=== PATIENT | female | born 1945 | race African-American/Black ===

== ENCOUNTER → 2017-05-13 | Outpatient (CLI) | payer MEDICARE, SELFPAY | PROVIDERS: Visit Provider Physician Assistant | DX: E01.0 Iodine-deficiency related diffuse (endemic) goiter (principal); I10 Essential (primary) hypertension | CPT/HCPCS: 80053; 84436; 84443 ==

== ENCOUNTER 2017-06-17 09:31 | Emergency (ER) | payer MEDICARE, MEDICAID, SELFPAY ==
[2017-06-17 09:34] VITALS: BP 140/71; PULSE 88; RESP 20; TEMP 36.9; O2SAT 99; BMI 54.1
--- NOTE | 2017-06-17 10:35 | HMH.EDUROGF ---
ED Disposition Clinical Impression: Vaginal bleeding, Hemorrhoids, Coagulopathy, Post-menopausal bleeding, Leucocytosis, Osteoarthritis Disposition: Home, Self-Care Condition on Discharge: Good Instructions: DI for Urinary Tract Infection (UTI), DI for Urinary Tract Infection in Children Additional Instructions: Patient remained stable asymptomatic except for the vaginal bleeding. Received IV fluid therapies and obtained pelvic ultrasound. 1- reassurance. 2- to start using maxi pads and return if she uses more than 5 pads a day. 3- to return for a recehck if she developes fever, weakness, dizziness, or light headedness. 4- to see Dr. Viveros as scheduled. 5- stop motrin and NSAIDS and reurmn if needed. Referrals: Ramon Herrera MD [Staff Physician] - - Critical Care Critical Care Time: No Attestation: On 06/17/17, the high probability of a clinically significant, sudden or life threatening deterioration of the following system(s) required my full and direct attention, intervention and personal management. The time I documented below is in addition to time spent performing reported procedures but includes the following listed in this critical care notation. Medical Decision Making Vital Signs: 06/17/17 09:34 06/17/17 10:45 Temperature 98.4 F Temperature Source Oral Pulse Rate [Right Radial] 88 98 H Respiratory Rate 20 18 Blood Pressure [Right Arm] 140/71 147/91 Blood Pressure Mean [Right Arm] 94 109 Blood Pressure Source [Right Arm] Automatic Cuff Blood Pressure Position [Right Arm] Standing 02 Sat by Pulse Oximetry 99 95 Oxygen Delivery Method Room Air Room Air - Lab Data Lab Results 06/17/17 10:20: WBC 15.3 H, RBC 4.36, Hgb 11.5 L, Hct 38.0, MCV 87.3, MCH 26.5 L, MCHC 30.4 L, RDW 14.3, Plt Count 281, MPV 8.1, Neut % (Auto) 83.6 H, Lymph % (Auto) 11.5, [place] % (Auto) 4.4, Eos % (Auto) 0.3, Baso % (Auto) 0.3, Neut # (Auto) 12.7 H, Lymph # (Auto) 1.8, [place] # (Auto) 0.7, Eos # (Auto) 0.0, Baso # (Auto) 0.1, Total Counted 100, Neutrophils % (Manual) 83 H, Lymphocytes % (Manual) 13, Monocytes % (Manual) 4, Platelet Estimate Normal, RBC Morphology Normal 06/17/17 10:50: Stool Occult Blood Negative 06/17/17 10:55: Sodium 136, Potassium 3.9, Chloride 100, Carbon Dioxide 28, Anion Gap 11.9, BUN 22 H, Creatinine 1.22 H, Estimated Creat Clear 38, Estimated GFR 44 L, Est GFR ( Amer) 53 L, Glucose 124 H, Calcium 8.8, Total Bilirubin 1.1 H, AST 13 L, ALT 22, Alkaline Phosphatase 104, Total Protein 8.2, Albumin 2.9 L, Globulin 5.3 H, Albumin/Globulin Ratio 0.5 L 06/17/17 10:55: Blood Type O Positive Result diagrams: 06/17/17 10:20 06/17/17 10:55 Orders (Tests/Meds): ED MEDICATIONS Discontinued Medications Generic Name Dose Route Start Last Admin Trade Name Freq PRN Reason Stop Dose Admin Lactated Ringer's 1,000 mls @ 999 mls/hr 06/17/17 11:15 06/17/17 11:10 Lactated Ringer's 1000 Ml Bag IV 06/17/17 12:15 999 mls/hr .Q1H1M MELVINA Administration ORDERS Category Date Time Status US pelvis (no fetus) Stat Exams 06/17/17 10:49 Ordered Activated Partial Thrombo Time Stat Lab 06/17/17 10:49 Ordered Prothrombin Time INR Stat Lab 06/17/17 10:49 Ordered - Louis Inquiry Pt receiving controlled substance: No Louis was queried for this patient: No Medical Decision Making Narrative: I discussed the above findings with the patient was aware that this is possibly uterine cancer. She had mild tachycardia orthostatics and she started on IV fluid. Order coagulation workup and a pelvic ultrasound. She was found to have a thickened endometrium. She did have leukocytosis, mild anemia and renal insufficiency. I discussed with with the patient if she has any fever cough or urinary issues, she denied. But she did have a steroid injection 10 days ago. I reviewed her labs and her hemoglobin is almost the same. I called the OB outside sales consultant Dr. Ramon Dimas who advised for pelvic
--- NOTE | 2017-06-17 10:41 | ED_ITS ---
ED Disposition Clinical Impression: Vaginal bleeding, Hemorrhoids, Coagulopathy, Post-menopausal bleeding, Leucocytosis, Osteoarthritis Disposition: Home, Self-Care Condition on Discharge: Good Instructions: DI for Urinary Tract Infection (UTI), DI for Urinary Tract Infection in Children Additional Instructions: Patient remained stable asymptomatic except for the vaginal bleeding. Received IV fluid therapies and obtained pelvic ultrasound. 1- reassurance. 2- to start using maxi pads and return if she uses more than 5 pads a day. 3- to return for a recehck if she developes fever, weakness, dizziness, or light headedness. 4- to see Dr. Viveros as scheduled. 5- stop motrin and NSAIDS and reurmn if needed. Referrals: Ramon Herrera MD [Staff Physician] - - Critical Care Critical Care Time: No Attestation: On 06/17/17, the high probability of a clinically significant, sudden or life threatening deterioration of the following system(s) required my full and direct attention, intervention and personal management. The time I documented below is in addition to time spent performing reported procedures but includes the following listed in this critical care notation. Medical Decision Making Vital Signs: 06/17/17 09:34 06/17/17 10:45 Temperature 98.4 F Temperature Source Oral Pulse Rate [Right Radial] 88 98 H Respiratory Rate 20 18 Blood Pressure [Right Arm] 140/71 147/91 Blood Pressure Mean [Right Arm] 94 109 Blood Pressure Source [Right Arm] Automatic Cuff Blood Pressure Position [Right Arm] Standing 02 Sat by Pulse Oximetry 99 95 Oxygen Delivery Method Room Air Room Air - Lab Data Lab Results 06/17/17 10:20: WBC 15.3 H, RBC 4.36, Hgb 11.5 L, Hct 38.0, MCV 87.3, MCH 26.5 L , MCHC 30.4 L, RDW 14.3, Plt Count 281, MPV 8.1, Neut % (Auto) 83.6 H, Lymph % ( Auto) 11.5, [place] % (Auto) 4.4, Eos % (Auto) 0.3, Baso % (Auto) 0.3, Neut # (Auto ) 12.7 H, Lymph # (Auto) 1.8, [place] # (Auto) 0.7, Eos # (Auto) 0.0, Baso # (Auto ) 0.1, Total Counted 100, Neutrophils % (Manual) 83 H, Lymphocytes % (Manual) 13 , Monocytes % (Manual) 4, Platelet Estimate Normal, RBC Morphology Normal 06/17/17 10:50: Stool Occult Blood Negative 06/17/17 10:55: Sodium 136, Potassium 3.9, Chloride 100, Carbon Dioxide 28, Anion Gap 11.9, BUN 22 H, Creatinine 1.22 H, Estimated Creat Clear 38, Estimated GFR 44 L, Est GFR ( Amer) 53 L, Glucose 124 H, Calcium 8.8, Total Bilirubin 1.1 H, AST 13 L, ALT 22, Alkaline Phosphatase 104, Total Protein 8.2, Albumin 2.9 L, Globulin 5.3 H, Albumin/Globulin Ratio 0.5 L 06/17/17 10:55: Blood Type O Positive Result diagrams: 06/17/17 10:20 06/17/17 10:55 Orders (Tests/Meds): ED MEDICATIONS Discontinued Medications Generic Name Dose Route Start Last Admin Trade Name Freq PRN Reason Stop Dose Admin Lactated Ringer's 1,000 mls @ 999 mls/hr 06/17/17 11:15 06/17/17 11:10 Lactated Ringer's 1000 Ml Bag IV 06/17/17 12:15 999 mls/hr .Q1H1M MELVINA Administration ORDERS Category Date Time Status US pelvis (no fetus) Stat Exams 06/17/17 10:49 Ordered Activated Partial Thrombo Time Stat Lab 06/17/17 10:49 Ordered Prothrombin Time INR Stat Lab 06/17/17 10:49 Ordered - Louis Inquiry Pt receiving controlled substance: No Louis was queried for this patient: No Medical Decision Making Narrat
[2017-06-17 10:45] VITALS: BP 147/91; BP 162/69; PULSE 79; PULSE 98; RESP 18; O2SAT 95
--- NOTE | 2017-06-17 10:49 | US_ITS ---
US pelvis (no fetus) HISTORY: ITS.REASON: vaginal bleeding ORDERING PHYSICIAN: Pierre Galicia MD PATIENT AGE: 71 years COMPARISON: None FINDINGS: UTERUS: The uterus measures 8.5 x 4.1 x 6.3. Combined endometrial thickness is 16 mm. No obvious uterine mass RIGHT OVARY: 2.7 x 2.6 cm. Unremarkable LEFT OVARY: 2.6 x 2 cm. Unremarkable CUL-DE-SAC FLUID: No cul-de-sac fluid apparent OTHER FINDINGS: None IMPRESSION: Bulky uterus with thickened endometrium
[2017-06-17 11:06] LABS: Basophils # 0.1 K/mm3 (0-0.2); Basophils % 0.3 % (0.1-2.0); Eosinophils % 0.3 % (0.1-12.0); Hemoglobin 11.5 g/dL (12.2-16.2); Lymphocytes # 1.8 K/mm3 (0.7-4.5); Lymphocytes % 11.5 K/mm3 (10-50); Mean Corpuscular HGB Conc 30.4 g/dL (31.8-35.4); Mean Corpuscular Hemoglobin 26.5 pg (27.0-31.2); Mean Corpuscular Volume 87.3 fl (81-99); Mean Platelet Volume 8.1 fl (7.4-10.4); Monocytes # 0.7 K/mm3 (0.1-1.0); Monocytes % 4.4 % (1.7-9.3); Neutrophils # 12.7 K/mm3 (1.8-7.8); Neutrophils % 83.6 % (37.0-80.0); Platelet Count 281 K/mm3 (142-424); Red Blood Count 4.36 M/mm3 (4.20-5.40); Red Cell Distribution Width 14.3 % (11.5-17.5); White Blood Count 15.3 K/mm3 (4.8-10.8)
[2017-06-17 11:08] LABS: MANUAL DIFFERENTIAL MANUAL DIFFERENTIAL (MANUAL DIFF)
[2017-06-17 11:13] LABS: Occult Blood,Stool Negative (Negative)
[2017-06-17 11:14] LABS: Alanine Aminotransferase 22 U/L (12-78); Albumin Level 2.9 gm/dL (3.4-5.0); Albumin/Globulin Ratio 0.5 (1.1-1.8); Alkaline Phosphatase 104 U/L (46-116); Anion Gap 11.9 mEq/L (5-15); Aspartate Amino Transferase 13 U/L (15-37); Bilirubin,Total 1.1 mg/dL (0.2-1.0); Blood Urea Nitrogen 22 mg/dL (7-18); Calcium 8.8 mg/dL (8.5-10.1); Carbon Dioxide 28 mmol/L (21.0-32.0); Chloride 100 mmol/L (98-107); Creatinine Clearance Estimated 38 mL/min (0-300); Creatinine,Serum 1.22 mg/dL (0.55-1.02); Estimated Glomerular Filt Rate 44 ml/min (>60); GFR (African American) 53 ML/MIN (>60); Globulin 5.3 gm/dl (1.3-3.2); Glucose 124 mg/dL (74-106); Potassium 3.9 mmoL/L (3.5-5.1); Sodium 136 mmol/L (136-145); Total Protein,Serum 8.2 gm/dL (6.4-8.2)
[2017-06-17 11:15] VITALS: BP 158/76; PULSE 74; RESP 20; O2SAT 100
[2017-06-17 11:30] VITALS: BP 186/92; PULSE 82; RESP 20; O2SAT 98
[2017-06-17 11:38] LABS: Lymphocytes % 13 % (10-50); Monocytes % 4 % (2-9); Neutrophils % 83 % (42-76); Platelet Estimate Normal; Total Cells Counted 100
[2017-06-17 11:39] LABS: RBC Morphology Normal
[2017-06-17 12:38] LABS: Activated Partial Thrombo Time 28.4 seconds (23.6-34.0); INR 1.05 (0.9-1.1); Prothrombin Time 11.4 seconds (9.4-11.8)
--- NOTE | 2017-06-17 12:46 | PC.NURSE ---
PT RECEIVED FOOD TRAY. ADDITIONALLY REQUESTED HER SON BE PRESENT. CALLED TO [facility]OBBY FOR SON
--- NOTE | 2017-06-17 13:40 | PC.NURSE ---
appointment made for patient, [address] Herrera's office.
[2017-06-17 13:41] VITALS: BP 150/80; PULSE 80; RESP 20; TEMP 36.7; O2SAT 100
== END 2017-06-17 14:06 | disposition home or self-care (01) ==
PROVIDERS: Emergency Provider Emergency Medicine
DX: N95.0 Postmenopausal bleeding (principal); K64.9 Unspecified hemorrhoids; D68.9 Coagulation defect, unspecified; D72.829 Elevated white blood cell count, unspecified; M19.90 Unspecified osteoarthritis, unspecified site
CPT/HCPCS: 76856; 80053; 82272; 85007; 85025; 85610; 85730; 86900; 86901; 96365; 99283; G0328

== ENCOUNTER → 2018-10-28 18:41 | Outpatient (CLI) | payer MEDICARE, MEDICAID, SELFPAY ==
[2018-10-28 18:59] LABS: Basophils % 0.5 % (0.1-2.0); Eosinophils # 0.2 K/mm3 (0.0-0.4); Eosinophils % 2.1 % (0.1-12.0); Hemoglobin 10.5 g/dL (12.2-16.2); Lymphocytes # 1.5 K/mm3 (0.7-4.5); Lymphocytes % 19.3 % (10-50); Mean Corpuscular HGB Conc 30.8 g/dL (31.8-35.4); Mean Corpuscular Hemoglobin 25.5 pg (27.0-31.2); Mean Corpuscular Volume 82.8 fl (81-99); Mean Platelet Volume 7.7 fl (7.4-10.4); Monocytes # 0.4 K/mm3 (0.1-1.0); Monocytes % 5.1 % (1.7-9.3); Neutrophils # 5.7 K/mm3 (1.8-7.8); Neutrophils % 72.9 % (37.0-80.0); Platelet Count 318 K/mm3 (142-424); Red Blood Count 4.11 M/mm3 (4.20-5.40); Red Cell Distribution Width 15.7 % (11.5-17.5); White Blood Count 7.8 K/mm3 (4.8-10.8)
[2018-10-28 19:51] LABS: Alanine Aminotransferase 21 U/L (12-78); Albumin Level 3.3 gm/dL (3.4-5.0); Albumin/Globulin Ratio 0.6 (1.1-1.8); Alkaline Phosphatase 107 U/L (46-116); Anion Gap 16.7 mEq/L (5-15); Aspartate Amino Transferase 19 U/L (15-37); Bilirubin,Total 0.5 mg/dL (0.2-1.0); Blood Urea Nitrogen 14 mg/dL (7-18); Calcium 9.1 mg/dL (8.5-10.1); Carbon Dioxide 23 mmol/L (21.0-32.0); Chloride 103 mmol/L (98-107); Chol/HDL Ratio 3.9 (1-3.5); Cholesterol 176 mg/dL (140-200); Creatinine,Serum 1.03 mg/dL (0.55-1.02); Estimated Glomerular Filt Rate 53 ml/min (>60); GFR (African American) 64 ML/MIN (>60); Globulin 5.1 gm/dl (1.3-3.2); Glucose 96 mg/dL (74-106); HDL Cholesterol 45 mg/dL (29-89); LDL Cholesterol 117 mg/dL (0-130); Potassium 3.7 mmoL/L (3.5-5.1); Sodium 139 mmol/L (136-145); T4 (Thyroxine) 7.6 ug/dl (4.7-13.3); Thyroid Stimulating Hormone 6.16 uIU/ml (0.358-3.740); Total Protein,Serum 8.4 gm/dL (6.4-8.2); Triglycerides 70 mg/dL (30-200); VLDL Cholesterol 14 mg/dL (0-40)
[2018-10-30 20:48] LABS: Vitamin D 25 Hydroxy 12.4 ng/mL (30.0-100.0)
== END ==
PROVIDERS: Visit Provider Nurse Practitioner Family
DX: I10 Essential (primary) hypertension (principal); N93.9 Abnormal uterine and vaginal bleeding, unspecified
CPT/HCPCS: 80053; 80061; 82652; 84436; 84443; 85025

== ENCOUNTER 2019-03-04 02:04 | Inpatient (IN) ==
[2019-03-04 02:34] LABS: Basophils % 0.3 % (0.1-2.0); Eosinophils % 0.4 % (0.1-12.0); Hematocrit 28.8 % (37.0-47.0); Hemoglobin 8.1 g/dL (12.2-16.2); Lymphocytes # 1.1 K/mm3 (0.7-4.5); Lymphocytes % 9.6 % (10-50); Mean Corpuscular HGB Conc 28.2 g/dL (31.8-35.4); Mean Corpuscular Volume 86.1 fl (81-99); Mean Platelet Volume 7.9 fl (7.4-10.4); Monocytes # 0.6 K/mm3 (0.1-1.0); Monocytes % 5.5 % (1.7-9.3); Neutrophils # 9.2 K/mm3 (1.8-7.8); Neutrophils % 84.1 % (37.0-80.0); Platelet Count 436 K/mm3 (142-424); Red Blood Count 3.35 M/mm3 (4.20-5.40); Red Cell Distribution Width 16.3 % (11.5-17.5); White Blood Count 10.9 K/mm3 (4.8-10.8)
[2019-03-04 02:39] LABS: Albumin Level 2.1 gm/dL (3.4-5.0); Albumin/Globulin Ratio 0.3 (1.1-1.8); Anion Gap 13.7 mEq/L (5-15); Bilirubin,Total 0.5 mg/dL (0.2-1.0); Calcium 8.5 mg/dL (8.5-10.1); Globulin 6.6 gm/dl (1.3-3.2); Total Protein,Serum 8.7 gm/dL (6.4-8.2)
[2019-03-04 02:52] LABS: C-Reactive Protein 19.8 mg/dL (0.0-0.9)
--- NOTE | 2019-03-04 03:17 | Emergency Department Note ---
ED Disposition Clinical Impression: Gangrene, Elevated erythrocyte sedimentation rate, Thrombocytosis, Renal insufficiency, HTN (hypertension), benign Anemia Qualifiers: Anemia type: unspecified type Qualified Code(s): D64.9 - Anemia, unspecified Obesity Qualifiers: Obesity type: due to excess calories Obesity classification: adult class 3 (BMI >= 40) Serious obesity comorbidity presence: with serious comorbidity Body mass index: BMI 50.0-59.9 Qualified Code(s): E66.01 - Morbid (severe) obesity due to excess calories; Z68.43 - Body mass index (BMI) 50.0-59.9, adult Hypothyroidism Qualifiers: Hypothyroidism type: acquired Qualified Code(s): E03.9 - Hypothyroidism, unspecified Disposition: Admitted As Inpatient Condition on Discharge: Serious - Critical Care Critical Care Time: No Attestation: On 03/04/19, the high probability of a clinically significant, sudden or life threatening deterioration of the following system(s) required my full and direct attention, intervention and personal management. The time I documented below is in addition to time spent performing reported procedures but includes the following listed in this critical care notation. Medical Decision Making - Medical Records Medical records reviewed: Yes: I reviewed the patient's medical records. - Louis Inquiry Pt receiving controlled substance: No Vital Signs: 03/04/19 02:02 Temperature 97.8 F Temperature Source Oral Pulse Rate [Left Radial] 97 H Respiratory Rate 17 Blood Pressure [Right Arm] 147/91 H Blood Pressure Mean [Right Arm] 109 Blood Pressure Source [Right Arm] Automatic Cuff Blood Pressure Position [Right Arm] Supine 02 Sat by Pulse Oximetry 99 Oxygen Delivery Method Room Air - Lab Data Lab results reviewed: Yes: I reviewed the patient's lab results. Lab Results 03/04/19 02:10: ESR > 140 H 03/04/19 02:10: Lactate 2.1 H 03/04/19 02:10: WBC 10.9 H, RBC 3.35 L, Hgb 8.1 L, Hct 28.8 L, MCV 86.1, MCH 24. 3 L, MCHC 28.2 L, RDW 16.3, Plt Count 436 H, MPV 7.9, Neut % (Auto) 84.1 H, Lymph % (Auto) 9.6 L, [place] % (Auto) 5.5, Eos % (Auto) 0.4, Baso % (Auto) 0.3, Neut # (Auto) 9.2 H, Lymph # (Auto) 1.1, [place] # (Auto) 0.6, Eos # (Auto) 0.0, Baso # (Auto) 0.0 03/04/19 02:10: Sodium 134 L, Potassium 3.7, Chloride 99, Carbon Dioxide 25, Anion Gap 13.7, BUN 25 H, Creatinine 1.64 H, Estimated Creat Clear 28, Estimated GFR 31 L, Est GFR ( Amer) 37 L, Glucose 123 H, Calcium 8.5, Total Bilirubin 0.5, AST 38 H, ALT 17, Alkaline Phosphatase 101, C-Reactive Protein 19.8 H, Total Protein 8.7 H, Albumin 2.1 L, Globulin 6.6 H, Albumin/Globulin Ratio 0.3 L Result diagrams: 03/04/19 02:10 03/04/19 02:10 Orders (Tests/Meds): ED MEDICATIONS Generic Name Dose Route Start Last Admin Trade Name Freq PRN Reason Stop Dose Admin Vancomycin HCl 2,500 mg/ 500 mls @ 167 mls/hr 03/04/19 03:30 Sodium Chloride IV 03/18/19 03:29 Q24H [facility] ORDERS Category Date Time Status Blood Culture Stat Micro 03/04/19 02:10 Received Fall HPI - General Chief Complaint: Fall Stated Complaint: fall Time Seen by Provider: 03/04/19 02:20 Mode of Arrival: EMS Source of Information: Patient, Relative, EMS, Medical Record Limitations: Physical Limitations Description of Symptoms (Recalled from ER Triage Doc. by RN): pt stated she was at home when her knees gave out and she fell to her knees. pt stated she was unable to get up on her own. pt denies hitting her head/LOC. per ems pt was found still on her knees with her head resting on a chair. bilateral edema and sores present on bilateral lower extremities. pt stated they have been in the condition since februrary from using a cream her son bought her that "made her skin fall off" - History of Present Illness HPI Narrative: progressive swelling lower ext over the last few months and has dec rom and use - pt has drainage and odor to bilat lower ext - no fever - no known diabetes MD complaint: fall Onset (ago): day(s) Fall from: chair Fall witnessed: no Place fall occurred: home Loss of consciousness: none Prolonged down time: no Symptoms prior to fall: none Severity: moderate Associated symptoms (after fall): denies - Related Data Previous Rx's Medication Instructions Recorded mupirocin 2 % topical cream 1 applic TOPICAL BID #15 g 12/11/17 ergocalciferol (vitamin D2) 50,000 50,000 unit PO QWEEK #8 cap 10/31/18 unit capsule carvedilol 25 mg tablet 25 mg PO BID 90 Days #180 tab 11/03/18 triamterene 37.5 See Rx Instructions .ROUTE 11/30/18 mg-hydrochlorothiazide 25 mg tablet .COMPLEX #90 tab diclofenac 1 % topical gel See Rx Instructions .ROUTE 01/11/19 .COMPLEX #100 gram levothyroxine 25 mcg tablet See Rx Instructions .ROUTE 02/18/19 .COMPLEX #90 tablet Allergies Allergy/AdvReac Type Severity Reaction Status Date / Time No Known Allergies Allergy Verified 10/28/18 17:46 [facility] History - Hepatitis A Screen Drug use history?: No High risk sexual behaviors?: No History of sexually transmitted infection?: No Currently employed?: No Childcare worker?: No Do you have indoor plumbing?: Yes Do you have electricity?: Yes Attestation statement:: This patient has been screened for Hepatitis A risk factors. I have reviewed the patient's past medical history: Yes Medical History: Reports:: Heart Murmur, Osteoporosis Other Medical History: Reports: Anemia, Osteoporosis, Unexplained Bleeding Other Surgeries: Yes: 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 Amputation: No Fractures: No - Social History Smoking Status: Never smoker Alcohol Intake: never Substance Use Type: denies use Occupational Status: retired Family Hx:: No significant family history PRODUCTION GRIP history: Abnormal Uterine Bleeding, 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 ROS Obtained: Yes All systems reviewed & no additional complaints - Constitutional Constitutional: Denies fever(s) - Eyes Eyes: Denies change in vision - ENT Ears, Nose, Mouth, and Throat: Denies sore throat - Cardiovascular Cardiovascular: Denies chest pain - Respiratory Respiratory: Yes cough - Gastrointestinal Gastrointestingal: Denies: abdominal pain - Genitourinary Female Genitourinary: Denies hematuria - Musculoskeletal Musculoskeletal: Reports as per HPI, Reports joint pain, Reports joint swelling, Reports limited range of motion - Integumentary/Breasts Skin/Breast: Reports as per HPI, Reports rash - Neurologic Neurologic: Denies seizure-like activity Physical Exam - General General appearance: alert, obese - Head Head exam: normocephalic - Eye Eye exam: Present: PERRL, EOMI. Absent: scleral icterus - ENT ENT exam: Present: mucous membranes dry - Neck Neck exam: Present: trachea midline - Respiratory Respiratory exam: Present: other (dec bs bilat ). Absent: respiratory distress - Cardiovascular Cardiovascular exam: Present: regular rate, systolic murmur, +S4 - Abdominal Exam Abdominal exam: Present: soft - Extremities Exam Extremities exam: Present: other (marked skin changes prob gangrene with odor ) - Neurological Exam Neurological exam: Present: alert, oriented X3, CN II-XII intact - Psychiatric Psychiatric exam: Present: normal affect - Skin Skin exam: Present: other (gangrene to lower ext bilat )
--- NOTE | 2019-03-04 07:39 | Pharmacy Consult Notes ---
[facility] Pharmacy VTE Monitoring - Patient Demographics Admission date: 03/04/19 Report Date: 03/04/19 Time: 07:39 Allergies/Adverse Reactions: Patient Allergies No Known Allergies Allergy (Verified 10/28/18 17:46) Height: 1.65 m Weight: 128.849 kg Patient Problems: Current Active Problems Gangrene (Acute) Anemia (Acute) Elevated erythrocyte sedimentation rate (Acute) Obesity (Acute) Thrombocytosis (Acute) Renal insufficiency (Acute) Hypothyroidism (Acute) HTN (hypertension), benign (Chronic) - VTE Risk Labs: VTE Related Lab Results Hgb 8.1 g/dL (12.2-16.2) L 03/04/19 02:10 Hct 28.8 % (37.0-47.0) L 03/04/19 02:10 Plt Count 436 K/mm3 (142-424) H 03/04/19 02:10 BUN 25 mg/dL (7-18) H 03/04/19 02:10 Creatinine 1.64 mg/dL (0.55-1.02) H 03/04/19 02:10 Estimated Creat Clear 28 mL/min (50-200) 03/04/19 02:10 Was VTE Risk Assessment Performed: Yes VTE Score: 3 VTE Risk Level: Low Risk Clinical Trial Participant: No - Prophylaxis Types of VTE Prophylaxis: TEDS Knee High
--- NOTE | 2019-03-04 08:31 | Pharmacy Consult Notes ---
- Pharmacy Consult Date: 03/04/19 Time: 08:30 Referring provider: DR. CASTAÑEDA Reason for Consult:: VANCOMYCIN DOSING Allergies and ADEs:: Allergies Allergy/AdvReac Type Severity Reaction Status Date / Time No Known Allergies Allergy Verified 10/28/18 17:46 Home Medications:: Home Medications Medication Instructions Recorded Confirmed Type carvedilol 25 mg tablet 25 mg PO BID 90 Days #180 tab 11/03/18 03/04/19 Rx Levothyroxine Sodium 25 mcg PO DAILY 03/04/19 03/04/19 History [Levothyroxine 25mcg (0.025mg) Tab] Triamterene/Hydrochlorothiazid 1 tab PO DAILY 03/04/19 03/04/19 History [Maxzide-25 tablet] Height: 1.65 m Weight: 128.849 kg Laboratory Results:: Laboratory Results - last 24 hr 03/04/19 02:10: ESR > 140 H 03/04/19 02:10: Lactate 2.1 H 03/04/19 02:10: WBC 10.9 H, RBC 3.35 L, Hgb 8.1 L, Hct 28.8 L, MCV 86.1, MCH 24.3 L, MCHC 28.2 L, RDW 16.3, Plt Count 436 H, MPV 7.9, Neut % (Auto) 84.1 H, Lymph % (Auto) 9.6 L, [place] % (Auto) 5.5, Eos % (Auto) 0.4, Baso % (Auto) 0.3, Neut # (Auto) 9.2 H, Lymph # (Auto) 1.1, [place] # (Auto) 0.6, Eos # (Auto) 0.0, Baso # (Auto) 0.0 03/04/19 02:10: Sodium 134 L, Potassium 3.7, Chloride 99, Carbon Dioxide 25, Anion Gap 13.7, BUN 25 H, Creatinine 1.64 H, Estimated Creat Clear 28, Estimated GFR 31 L, Est GFR ( Amer) 37 L, Glucose 123 H, Calcium 8.5, Total Bilirubin 0.5, AST 38 H, ALT 17, Alkaline Phosphatase 101, C-Reactive Protein 19.8 H, Total Protein 8.7 H, Albumin 2.1 L, Globulin 6.6 H, Albumin/Globulin Ratio 0.3 L 03/04/19 02:10: TSH 3.20 D 03/04/19 07:35: Lactate 0.8 Medical History: Reports:: Heart Murmur, Hypertension, Osteoporosis Denies:: Cancer, Diabetes Mellitus Type 1, Diabetes Mellitus Type 2, MRSA Assessment and Plan - Assessment and plan all Dx Assessment and Plan for all problems:: BASED ON PATIENT FACTORS, RECOMMEND VANCOMYCIN 2500 MG IV Q36H. PHARMACY WILL FOLLOW DAILY AND ADJUST APPROPRIATE.
--- NOTE | 2019-03-04 08:37 | Consult Report ---
*Admission Date: 03/04/19 <Radha Alba - 03/04/19 08:42> *Reason for consult:: b/l lower extremity cellulitis <Radha Alba 03/04/19 08:42> *History of present illness: 73 yr. old female admitted with b/l lower extremities cellulitis, edema. Patient states she does not have Diabetes or any PVD, but does state that the lower leg edema and blisters has been an issue for her now going on a year or more. She has not been treated by for this problem by any other lymphedema clinic or provider. She did say she consulted an online provider with this and they started her on keflex for 10 days and she has finished this medication and states no relief. Patient states she used Salicyclic acid on her legs about a month ago to get rid of the rough skin and blisters, which has only burned her skin. <Radha Alba 03/04/19 08:42> Review of Systems - Constitutional Reports daytime sleepiness <Radha Alba 03/04/19 08:42> - Eyes Denies change in vision <Radha Alba 03/04/19 08:42> - ENT Denies abnormal hearing, Denies dizziness <Radha Alba 03/04/19 08:42> - *Cardiovascular Reports leg swelling, Reports leg sores, Reports foot swelling, Denies shortness of breath, Denies shortness of breath when lying down <Radha Alba 03/04/19 08:42> - *Respiratory Denies cough, Denies shortness of breath <Radha Alba 03/04/19 08:42> - *Gastrointestinal Denies abdominal pain <Radha Alba 03/04/19 08:42> - *Musculoskeletal Reports abnormal walking, Reports numbness <AnjaliRadha Robert 03/04/19 08:42> Comments: Patient has difficulty walking due to the pain on her heels, they are red and on the verge of breakdown. Patient states that even though her legs look bad, they do not hurt. <SurjitcaseyRadha Robert Edmond 03/04/19 08:42> - *Neurologic Reports abnormal walking, Reports tingling/numbness/burning sensations, Reports sensory deficit, Reports tingling, Denies confusion, Denies dizziness, Denies seizure-like activity <Radha Alba 03/04/19 08:42> - Psychiatric Reports abnormal sleep pattern <Radha Alba 03/04/19 08:42> Comments: Patient states that she does not sleep well. <Radha Alba 03/04/19 08:42> - Hematologic/Lymphatic Denies easy bruising <Radha Alba 03/04/19 08:42> - Allergic/Immunologic Denies wheezing <Radha Alba 03/04/19 09:10> [facility] History I have reviewed the patient's past medical history: Yes <Soumya Blue - 03/04/19 19:06> Medical History: Reports:: Heart Murmur, Hypertension, Osteoporosis Denies:: Cancer, Diabetes Mellitus Type 1, Diabetes Mellitus Type 2, MRSA <Radha Alba 03/04/19 08:42> *Have you ever received a pneumonia vaccine?: No <Radha Alba 03/04/19 08:42> *Have you received a flu vaccine this season?: No <Radha Alba 03/04/19 08:42> Other Medical History: Reports: Anemia, Osteoporosis, Unexplained Bleeding <Radha Alba 03/04/19 08:42> Other Surgeries: Yes: 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 <Radha Alba 03/04/19 08:42> Amputation: No <Radha Alba 03/04/19 08:42> Fractures: No <Radha Alba 03/04/19 08:42> - *Social History Educational Level: Completed College <Radha Alba 03/04/19 08:42> Smoking Status: Former smoker <Radha Alba 03/04/19 08:42> Tobacco Type: cigarettes <Radha Alba 03/04/19 08:42> #Yrs smoked (if former smoker): 10 <Radha Alba - 03/04/19 08:42> Smoking End Date: 25 YEARS AGO <Radha Alba 03/04/19 08:42> Alcohol Intake: never <Radha Alba 03/04/19 08:42> Substance Use Type: denies use <Radha Alba 03/04/19 08:42> *Occupational Status:: retired <Radha Alba 03/04/19 08:42> Household Members: children <Radha Alba 03/04/19 08:42> *Travel in the last 8 weeks: None <Radha Alba 03/04/19 08:42> Family Hx:: No significant family history <Radha Alba 03/04/19 08:42> [employer]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, 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 <Radha Alba 03/04/19 08:42> Meds Home Medications Medication Instructions Recorded Confirmed Type carvedilol 25 mg tablet 25 mg PO BID 90 Days #180 tab 11/03/18 03/04/19 Rx Levothyroxine Sodium 25 mcg PO DAILY 03/04/19 03/04/19 History [Levothyroxine 25mcg (0.025mg) Tab] Triamterene/Hydrochlorothiazid 1 tab PO DAILY 03/04/19 03/04/19 History [Maxzide-25 tablet] <Radha Alba 03/04/19 08:42> Allergies Allergy/AdvReac Type Severity Reaction Status Date / Time No Known Allergies Allergy Verified 10/28/18 17:46 <Radha Alba 03/04/19 08:42> Exam Vital signs and Labs for Last 24 Hours: Temp Pulse Resp BP Pulse Ox 98.4 F 83 17 135/55 L 94 L 03/04/19 16:00 03/04/19 16:00 03/04/19 16:00 03/04/19 16:00 03/04/19 16:00 Laboratory Results - last 24 hr 03/04/19 02:10: ESR > 140 H 03/04/19 02:10: Lactate 2.1 H 03/04/19 02:10: WBC 10.9 H, RBC 3.35 L, Hgb 8.1 L, Hct 28.8 L, MCV 86.1, MCH 24.3 L, MCHC 28.2 L, RDW 16.3, Plt Count 436 H, MPV 7.9, Neut % (Auto) 84.1 H, Lymph % (Auto) 9.6 L, Noble % (Auto) 5.5, Eos % (Auto) 0.4, Baso % (Auto) 0.3, Neut # (Auto) 9.2 H, Lymph # (Auto) 1.1, Noble # (Auto) 0.6, Eos # (Auto) 0.0, Baso # (Auto) 0.0 03/04/19 02:10: Sodium 134 L, Potassium 3.7, Chloride 99, Carbon Dioxide 25, Anion Gap 13.7, BUN 25 H, Creatinine 1.64 H, Estimated Creat Clear 28, Estimated GFR 31 L, Est GFR ( Amer) 37 L, Glucose 123 H, Calcium 8.5, Total Bilirubin 0.5, AST 38 H, ALT 17, Alkaline Phosphatase 101, C-Reactive Protein 19.8 H, Total Protein 8.7 H, Albumin 2.1 L, Globulin 6.6 H, Albumin/Globulin Ratio 0.3 L 03/04/19 02:10: TSH 3.20 D 03/04/19 07:35: Lactate 0.8 <Soumya Blue - 03/04/19 18:53> Temp Pulse Resp BP Pulse Ox 98.2 F 89 16 118/52 L 100 03/04/19 08:00 03/04/19 08:00 03/04/19 08:00 03/04/19 08:00 03/04/19 08:00 Laboratory Results - last 24 hr 03/04/19 02:10: ESR > 140 H 03/04/19 02:10: Lactate 2.1 H 03/04/19 02:10: WBC 10.9 H, RBC 3.35 L, Hgb 8.1 L, Hct 28.8 L, MCV 86.1, MCH 24.3 L, MCHC 28.2 L, RDW 16.3, Plt Count 436 H, MPV 7.9, Neut % (Auto) 84.1 H, Lymph % (Auto) 9.6 L, Noble % (Auto) 5.5, Eos % (Auto) 0.4, Baso % (Auto) 0.3, Neut # (Auto) 9.2 H, Lymph # (Auto) 1.1, Noble # (Auto) 0.6, Eos # (Auto) 0.0, Baso # (Auto) 0.0 03/04/19 02:10: Sodium 134 L, Potassium 3.7, Chloride 99, Carbon Dioxide 25, Anion Gap 13.7, BUN 25 H, Creatinine 1.64 H, Estimated Creat Clear 28, Estimated GFR 31 L, Est GFR ( Amer) 37 L, Glucose 123 H, Calcium 8.5, Total Bilirubin 0.5, AST 38 H, ALT 17, Alkaline Phosphatase 101, C-Reactive Protein 19.8 H, Total Protein 8.7 H, Albumin 2.1 L, Globulin 6.6 H, Albumin/Globulin Ratio 0.3 L 03/04/19 02:10: TSH 3.20 D 03/04/19 07:35: Lactate 0.8 <Radha Alba - 03/04/19 08:42> I & O for Last 24 hours: Intake & Output 03/02/19 03/03/19 03/04/19 03/05/19 11:59 11:59 11:59 11:59 Intake Total 546 / 546 240 / 240 Output Total 350 / 350 Balance 546 / 546 -110 / -110 Weight 284 lb 1 oz <Soumya Blue - 03/04/19 18:53> Intake & Output 03/01/19 03/02/19 03/03/19 03/04/19 23:59 23:59 23:59 23:59 Intake Total 546 / 546 Balance 546 / 546 Weight 284 lb 1 oz <Radha Alba - 03/04/19 08:42> Microbiology Reports for the Last 24 Hours: Microbiology 03/04/19 03:55 Ankle,Right Gram Stain - Final <Soumya Blue - 03/04/19 18:53> Microbiology 03/04/19 03:55 Ankle,Right Gram Stain - Final <Radha Alba - 03/04/19 08:42> - Constitutional no acute distress, morbidly obese, cooperative <Radha Alba - 03/04/19 18:34> - *Routine HEENT Exam Head: Present: normocephalic <Radha Alba - 03/04/19 18:34> Eye: Present: normal accommodation <Radha Alba - 03/04/19 18:34> ENT: Present: mucous membranes moist <Radha Alba - 03/04/19 18:34> - *Routine Neck Exam Present: full ROM. Absent: JVD <Radha Alba - 03/04/19 18:34> - Routine Chest/Breast/Axilla Exam Chest wall: Absent: tenderness <SurjituzRadha rojo - 03/04/19 18:34> - *Routine Respiratory Exam Absent: accessory muscle use, respiratory distress <Radha Alba - 03/04/19 18:34> - *Routine Cardiovascular Exam Present: RRR <Radha Alba - 03/04/19 18:34> - *Routine Abdominal Exam Absent: distended, guarding <Radha Alba - 03/04/19 18:34> - *Routine Rectal Exam Patient deferred: visual exam <Radha Abla - 03/04/19 18:34> - *Routine Exam Patient deferred: external exam <Radha Alba - 03/04/19 18:34> - *Routine Extremities Exam Present: edema, normal capillary refill. Absent: pulses intact, calf tenderness <Radha Alba - 03/04/19 18:34> Comments: Patient has 3+ pedal edema noted, unable to palpate her pulses. <Radha Alba - 03/04/19 18:34> - *Routine Skin Exam Present: erythema, warm, lesions, wounds, cracked <Radha Alba - 03/04/19 18:34> - *Routine Neurological Exam Present: oriented X3, abnormal gait <Radha Alba - 03/04/19 18:34> - Detailed Lower Extremity Exam Lower leg: Bilateral swelling, Bilateral tenderness, Bilateral wound, Bilateral erythema, Bilateral warmth <Radha Alba - 03/04/19 18:34> Ankle: Bilateral erythema, Bilateral swelling <Radha Alba Robert - 03/04/19 18:34> Foot/Toes: Bilateral erythema, Bilateral nail abnormalities, Bilateral swelling, Bilateral wound <Radha Alba - 03/04/19 18:34> Leg image: 1 - The entire left leg is edematous and has weepy wounds, cracked sores, bullous, and has a foul smell. Patient to consult with wound care today. 2 - The entire right is edematous and has weepy wounds, cracked sores, bullous, and has a foul smell. Patient to consult with wound care today. <Radha Alba Robert - 03/04/19 18:34> Bottom foot image: 1 - Edema and erythema noted to the right and left heels. Early signs of pressure ulcer. No definitive skin breakdown, blistering or ulcer noted. No pur ulence. Mild pain to palpation. 2 - See above <Soumya Blue - 03/04/19 19:06> Results - Labs Result Diagrams: 03/04/19 02:10 03/04/19 02:10 <Radha Alba Robert - 03/04/19 08:42> Labs: Abnormal lab results 03/04/19 03/04/19 03/04/19 Range/Units 02:10 02:10 02:10 WBC 10.9 H (4.8-10.8) K/mm3 RBC 3.35 L (4.20-5.40) M/mm3 Hgb 8.1 L (12.2-16.2) g/dL Hct 28.8 L (37.0-47.0) % MCH 24.3 L (27.0-31.2) pg MCHC 28.2 L (31.8-35.4) g/dL Plt Count 436 H (142-424) K/mm3 Neut % (Auto) 84.1 H (37.0-80.0) % Lymph % (Auto) 9.6 L (10-50) % Neut # (Auto) 9.2 H (1.8-7.8) K/mm3 ESR > 140 H (0-30) mm/hr Sodium (136-145) mmol/L BUN (7-18) mg/dL Creatinine (0.55-1.02) mg/dL Estimated GFR (>60) ml/min Est GFR ( Amer) (>60) ML/MIN Glucose (74-106) mg/dL Lactate 2.1 H (0.4-2.0) mmol/L AST (15-37) U/L C-Reactive Protein (0.0-0.9) mg/dL Total Protein (6.4-8.2) gm/dL Albumin (3.4-5.0) gm/dL Globulin (1.3-3.2) gm/dl Albumin/Globulin Ratio (1.1-1.8) 03/04/19 Range/Units 02:10 WBC (4.8-10.8) K/mm3 RBC (4.20-5.40) M/mm3 Hgb (12.2-16.2) g/dL Hct (37.0-47.0) % MCH (27.0-31.2) pg MCHC (31.8-35.4) g/dL Plt Count (142-424) K/mm3 Neut % (Auto) (37.0-80.0) % Lymph % (Auto) (10-50) % Neut # (Auto) (1.8-7.8) K/mm3 ESR (0-30) mm/hr Sodium 134 L (136-145) mmol/L BUN 25 H (7-18) mg/dL Creatinine 1.64 H (0.55-1.02) mg/dL Estimated GFR 31 L (>60) ml/min Est GFR ( Amer) 37 L (>60) ML/MIN Glucose 123 H (74-106) mg/dL Lactate (0.4-2.0) mmol/L AST 38 H (15-37) U/L C-Reactive Protein 19.8 H (0.0-0.9) mg/dL Total Protein 8.7 H (6.4-8.2) gm/dL Albumin 2.1 L (3.4-5.0) gm/dL Globulin 6.6 H (1.3-3.2) gm/dl Albumin/Globulin Ratio 0.3 L (1.1-1.8) H & H 03/04/19 Range/Units 02:10 Hgb 8.1 L (12.2-16.2) g/dL Hct 28.8 L (37.0-47.0) % All other labs normal. <Soumya Blue - 03/04/19 18:53> Abnormal lab results 03/04/19 03/04/19 03/04/19 Range/Units 02:10 02:10 02:10 WBC 10.9 H (4.8-10.8) K/mm3 RBC 3.35 L (4.20-5.40) M/mm3 Hgb 8.1 L (12.2-16.2) g/dL Hct 28.8 L (37.0-47.0) % MCH 24.3 L (27.0-31.2) pg MCHC 28.2 L (31.8-35.4) g/dL Plt Count 436 H (142-424) K/mm3 Neut % (Auto) 84.1 H (37.0-80.0) % Lymph % (Auto) 9.6 L (10-50) % Neut # (Auto) 9.2 H (1.8-7.8) K/mm3 ESR > 140 H (0-30) mm/hr Sodium (136-145) mmol/L BUN (7-18) mg/dL Creatinine (0.55-1.02) mg/dL Estimated GFR (>60) ml/min Est GFR ( Amer) (>60) ML/MIN Glucose (74-106) mg/dL Lactate 2.1 H (0.4-2.0) mmol/L AST (15-37) U/L C-Reactive Protein (0.0-0.9) mg/dL Total Protein (6.4-8.2) gm/dL Albumin (3.4-5.0) gm/dL Globulin (1.3-3.2) gm/dl Albumin/Globulin Ratio (1.1-1.8) 03/04/19 Range/Units 02:10 WBC (4.8-10.8) K/mm3 RBC (4.20-5.40) M/mm3 Hgb (12.2-16.2) g/dL Hct (37.0-47.0) % MCH (27.0-31.2) pg MCHC (31.8-35.4) g/dL Plt Count (142-424) K/mm3 Neut % (Auto) (37.0-80.0) % Lymph % (Auto) (10-50) % Neut # (Auto) (1.8-7.8) K/mm3 ESR (0-30) mm/hr Sodium 134 L (136-145) mmol/L BUN 25 H (7-18) mg/dL Creatinine 1.64 H (0.55-1.02) mg/dL Estimated GFR 31 L (>60) ml/min Est GFR ( Amer) 37 L (>60) ML/MIN Glucose 123 H (74-106) mg/dL Lactate (0.4-2.0) mmol/L AST 38 H (15-37) U/L C-Reactive Protein 19.8 H (0.0-0.9) mg/dL Total Protein 8.7 H (6.4-8.2) gm/dL Albumin 2.1 L (3.4-5.0) gm/dL Globulin 6.6 H (1.3-3.2) gm/dl Albumin/Globulin Ratio 0.3 L (1.1-1.8) H & H 03/04/19 Range/Units 02:10 Hgb 8.1 L (12.2-16.2) g/dL Hct 28.8 L (37.0-47.0) % All other labs normal. <Radha Alba - 03/04/19 08:42> - Diagnostic results Ankle/Foot x-ray: report reviewed, image reviewed <Soumya Blue - 03/04/19 19:06> Assessment and Plan (1) Lymphedema Start date: 03/04/19 Start time: 08:00 Current visit: Yes Status: Acute Category: Medical Code(s): I89.0 - Lymphedema, not elsewhere classified (2) Cellulitis, leg Start date: 03/04/19 Start time: 08:00 Current visit: Yes Status: Acute Category: Medical Code(s): L03.119 - Cellulitis of unspecified part of limb (3) Heel ulcer Start date: 03/04/19 Start time: 08:00 Current visit: Yes Status: Acute Category: Medical Code(s): L97.409 - Non-pressure chronic ulcer of unspecified heel and midfoot with unspecified severity (4) Bilateral pressure ulcer of feet Current visit: Yes Status: Acute Category: Medical Code(s): L89.899 - Pressure ulcer of other site, unspecified stage (5) Morbid obesity with BMI of 45.0-49.9, adult Start date: 03/04/19 Start time: 08:00 Current visit: Yes Status: Chronic Category: Medical Code(s): E66.01 - Morbid (severe) obesity due to excess calories; Z68.42 - Body mass index (BMI) 45.0-49.9, adult (6) Keratosis Start date: 03/04/19 Start time: 08:00 Current visit: Yes Status: Chronic Category: Medical Code(s): L57.0 - Actinic keratosis (7) Osteoarthritis of feet, bilateral Start date: 03/04/19 Start time: 08:00 Current visit: Yes Status: Chronic Category: Medical Code(s): M19.071 - Primary osteoarthritis, right ankle and foot; M19.072 - Primary osteoarthritis, left ankle and foot <Soumya Blue - 03/04/19 18:53> (1) Lymphedema Start date: 03/04/19 Start time: 08:00 Current visit: Yes Status: Acute Category: Medical Code(s): I89.0 - Lymphedema, not elsewhere classified (2) Cellulitis, leg Start date: 03/04/19 Start time: 08:00 Current visit: Yes Status: Acute Category: Medical Code(s): L03.119 - Cellulitis of unspecified part of limb (3) Heel ulcer Start date: 03/04/19 Start time: 08:00 Current visit: Yes Status: Acute Category: Medical Code(s): L97.409 - Non-pressure chronic ulcer of unspecified heel and midfoot with unspecified severity <Gauze,Radha L - 03/04/19 19:07> - Assessment and plan all Dx Assessment and Plan for all problems:: Bilateral lower extremity lymphedema, heel pressure ulcers, cellulitis: We discussed in detail with the patient lymphedema. We explained that when the lymphatic drainage occurs there can be sores on the legs. Likely there was superficial can skin contaminant to the open sores which led to cellulitis. Also the use of the salicylic acid on the skin may have burned it causing an open sore which then got infected. I explained the treatment is multi- factorial. The underlying lymphedema needs to be addressed via wound care clinic, lymphedema clinic including compression therapy and the use of Unna boots. The infection needs to be controlled via antibiotics. The heel pain needs to be controlled by offloading the heels. The patient does not have a definitive pressure ulcer as of yet but the areas edematous and erythematous. She must offload in order to prevent decubitus ulcers from forming. 30 minutes was spent educating and counseling the patient. Plan: 1. Foot x-rays 3 views taken 03/04/2019 reviewed and evaluated by myself. Report noted. Osteoarthritic changes noted throughout the foot. No definitive ulcer or signs of osteomyelitis noted 2. Agree with Dr. Greenfield's consult for wound care 3. Add consult for specific lymphedema treatment 4. Application of unna boots today via wound care 5. Recommend minimal weightbearing to avoid pressure on the heels; patient will need DME (wheelchair, walker, bedside commode, shower chair) 6. Patient will need postop shoe x2 7. Patient will need outpatient lymphedema compression therapy, antibiotics for the cellulitis and continued offloading for the heels 8. Defer to Dr. Greenfield for outpatient antiobiotics, patient may need PICC line based on wound culture 9. Plan to see patient in am 10. Follow up with wcc/lymph upon discharge Thank you for allowing us to participate in the care of this patient. Please contact us with questions or concerns. <Soumya Blue - 03/04/19 19:06>
--- NOTE | 2019-03-04 09:53 | History & Physical Report ---
*Admission Date: 03/04/19 *Chief complaint: leg sores *History of present illness: 73 yr old female pt stated she was at home when her knees gave out and she fell to her knees. pt stated she was unable to get up on her own. pt denies hitting her head/LOC. per ems pt was found still on her knees with her head resting on a chair. bilateral edema and sores present on bilateral lower extremities. pt stated they have been in the condition with dry/scarred so she bought a cream that was for wart removal that "made her skin fall off" for about a month and a half. Patient states she is been having increased amount of issues with her knees hurting and was told she is not a candidate for knee replacement due to her obesity. Patient states her legs just progressively got worse. [facility] History I have reviewed the patient's past medical history: Yes Medical History: Reports:: Heart Murmur, Hypertension, Osteoporosis Denies:: Cancer, Diabetes Mellitus Type 1, Diabetes Mellitus Type 2, MRSA *Have you ever received a pneumonia vaccine?: No *Have you received a flu vaccine this season?: No Other Medical History: Reports: Anemia, Osteoporosis, Unexplained Bleeding Other Surgeries: Yes: 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 Amputation: No Fractures: No - *Social History Educational Level: Completed College Smoking Status: Former smoker Tobacco Type: cigarettes #Yrs smoked (if former smoker): 10 Smoking End Date: 25 YEARS AGO Alcohol Intake: never Substance Use Type: denies use *Occupational Status:: retired Household Members: children *Travel in the last 8 weeks: None Family Hx:: No significant family history 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, 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 Review of Systems - Constitutional Reports weakness, Denies excessive sweating - Eyes Denies sensitivity to light - ENT Denies sinus pain - *Cardiovascular Reports generalized swelling, Denies leg pain with activity - *Respiratory Denies chest congestion, Denies shortness of breath - *Gastrointestinal Denies nausea, Denies vomiting - *Genitourinary Denies side pain - *Musculoskeletal Reports muscle weakness - Integumentary/Breasts Reports skin ulcer, Reports sores - *Neurologic Reports abnormal walking, Reports numbness, Reports tingling/numbness/burning sensations, Reports sensory deficit, Reports tingling, Denies abnormal hearing, Denies confusion, Denies dizziness, Denies seizure-like activity, Denies dizziness - Psychiatric Denies anxiety - Endocrine Denies heat intolerance - Hematologic/Lymphatic Denies enlarged lymph nodes - Allergic/Immunologic Denies seasonal runny nose Meds Home Medications Medication Instructions Recorded Confirmed Type carvedilol 25 mg tablet 25 mg PO BID 90 Days #180 tab 11/03/18 03/04/19 Rx Levothyroxine Sodium 25 mcg PO DAILY 03/04/19 03/04/19 History [Levothyroxine 25mcg (0.025mg) Tab] Triamterene/Hydrochlorothiazid 1 tab PO DAILY 03/04/19 03/04/19 History [Maxzide-25 tablet] Allergies Allergy/AdvReac Type Severity Reaction Status Date / Time No Known Allergies Allergy Verified 10/28/18 17:46 Exam Vital signs and Labs for Last 24 Hours: Temp Pulse Resp BP Pulse Ox 98.2 F 89 16 118/52 L 100 03/04/19 08:00 03/04/19 08:00 03/04/19 08:00 03/04/19 08:00 03/04/19 08:00 Laboratory Results - last 24 hr 03/04/19 02:10: ESR > 140 H 03/04/19 02:10: Lactate 2.1 H 03/04/19 02:10: WBC 10.9 H, RBC 3.35 L, Hgb 8.1 L, Hct 28.8 L, MCV 86.1, MCH 24.3 L, MCHC 28.2 L, RDW 16.3, Plt Count 436 H, MPV 7.9, Neut % (Auto) 84.1 H, Lymph % (Auto) 9.6 L, Addison % (Auto) 5.5, Eos % (Auto) 0.4, Baso % (Auto) 0.3, Neut # (Auto) 9.2 H, Lymph # (Auto) 1.1, Addison # (Auto) 0.6, Eos # (Auto) 0.0, Baso # (Auto) 0.0 03/04/19 02:10: Sodium 134 L, Potassium 3.7, Chloride 99, Carbon Dioxide 25, Anion Gap 13.7, BUN 25 H, Creatinine 1.64 H, Estimated Creat Clear 28, Estimated GFR 31 L, Est GFR ( Amer) 37 L, Glucose 123 H, Calcium 8.5, Total Bilirubin 0.5, AST 38 H, ALT 17, Alkaline Phosphatase 101, C-Reactive Protein 19.8 H, Total Protein 8.7 H, Albumin 2.1 L, Globulin 6.6 H, Albumin/Globulin Ratio 0.3 L 03/04/19 02:10: TSH 3.20 D 03/04/19 07:35: Lactate 0.8 I & O for Last 24 hours: Intake & Output 03/01/19 03/02/19 03/03/19 03/04/19 11:59 11:59 11:59 11:59 Intake Total 546 / 546 Balance 546 / 546 Weight 284 lb 1 oz Microbiology Reports for the Last 24 Hours: Microbiology 03/04/19 03:55 Ankle,Right Gram Stain - Final - *Routine HEENT Exam Head: Present: normocephalic Eye: Present: EOMI, PERRL ENT: Present: mucous membranes moist - *Routine Neck Exam Present: supple. Absent: lymphadenopathy - *Routine Respiratory Exam Present: CTA bilaterally - *Routine Cardiovascular Exam Present: RRR - *Routine Abdominal Exam Present: soft, normoactive bowel sounds. Absent: tenderness - *Routine Extremities Exam Absent: cyanosis, clubbing, edema - *Routine Skin Exam Present: warm, wounds. Absent: rash Comments: Left heel with reddened area about the size of a golf ball with black in the center Bilateral legs with open oozing purulent smelling open areas with dry skin sloughing off - *Routine Neurological Exam Present: alert, oriented X3 - Detailed Eye Exam Eyelids: Left normal inspection Assessment and Plan (1) Venous stasis ulcers of both lower extremities Current visit: Yes Status: Acute Category: Medical Code(s): I83.019 - Varicose veins of right lower extremity with ulcer of unspecified site; I83.029 - Varicose veins of left lower extremity with ulcer of unspecified site; L97.919 - Non-pressure chronic ulcer of unspecified part of right lower leg with unspecified severity; L97.929 - Non-pressure chronic ulcer of unspecified part of left lower leg with unspecified severity (2) Osteoarthritis Current visit: No Status: Acute Category: Medical Code(s): M19.90 - Unspecified osteoarthritis, unspecified site (3) Obesity Current visit: Yes Status: Acute Qualifiers: Obesity type: due to excess calories Obesity classification: adult class 3 (BMI >= 40) Serious obesity comorbidity presence: with serious comorbidity Body mass index: BMI 50.0-59.9 Qualified Code(s): E66.01 - Morbid (severe) obesity due to excess calories; Z68.43 - Body mass index (BMI) 50.0-59.9, adult Category: Medical Code(s): E66.9 - Obesity, unspecified - Assessment and plan all Dx Assessment and Plan for all problems:: Rounded with Dr. Greenfield all orders per [place] Consult Dr. Mcdonnell Consult physical therapy Consult Ortho
--- NOTE | 2019-03-04 16:48 | Consult Report ---
*Admission Date: 03/04/19 *Reason for consult:: bilateral knee pain *History of present illness: 73-year-old female admitted through the emergency room overnight after a fall at home when her knees gave out. She lives at home with her children and ambulates at baseline with either a cane or rolling walker. She is only able to ambulate short distances and believes she would not be able to walk an entire city block without stopping to rest. Her home is one-story with 1 or 2 small steps required for entry. She has a history of osteoarthritis of bilateral knees and has been evaluated at by Dr. Fung, who discussed her need for knee replacement but that she is not a good candidate at this time due to her weight; she was seen by him in May 2017. She was given corticosteroid injections at that time, which did help her pain, but they have worn off. Her son has discussed viscosupplementation or PRP injections but they have not been performed to date. She takes diclofenac oral tabs and uses the topical cream at home. She has had no other treatment for her knees. On admission she was found to have lower extremity cellulitis and significant lymphedema. She has not been treated in the past by a lymphedema clinic or used any lymphedema/compression products. She reports increasing pain and swelling in her legs over the past few months but denies significant fevers or chills at home, no nausea/vomiting or diarrhea, no chest pain or shortness of breath. Medical history significant for HTN, osteoporosis, heart murmur, chronic anemia. She is a former smoker and quit around 25 years ago; denies any EtOH intake. BMI is 47.3. Review of Systems - Review of Systems Review of systems:: pertinent systems reviewed and negative unless documented below - *Neurologic Reports abnormal walking, Reports numbness, Reports tingling/numbness/burning sensations, Reports sensory deficit, Reports tingling, Reports weakness, Denies abnormal hearing, Denies confusion, Denies dizziness, Denies seizure-like activity, Denies dizziness [facility] History I have reviewed the patient's past medical history: Yes Medical History: Reports:: Heart Murmur, Hypertension, Osteoporosis Denies:: Cancer, Diabetes Mellitus Type 1, Diabetes Mellitus Type 2, MRSA *Have you ever received a pneumonia vaccine?: No *Have you received a flu vaccine this season?: No Other Medical History: Reports: Anemia, Osteoporosis, Unexplained Bleeding Other Surgeries: Yes: 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 Amputation: No Fractures: No - *Social History Educational Level: Completed College Smoking Status: Former smoker Tobacco Type: cigarettes #Yrs smoked (if former smoker): 10 Smoking End Date: 25 YEARS AGO Alcohol Intake: never Substance Use Type: denies use *Occupational Status:: retired Household Members: children *Travel in the last 8 weeks: None Family Hx:: No significant family history KNIFE GRINDER history: Abnormal Uterine Bleeding, 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 Meds Home Medications Medication Instructions Recorded Confirmed Type carvedilol 25 mg tablet 25 mg PO BID 90 Days #180 tab 11/03/18 03/04/19 Rx Levothyroxine Sodium 25 mcg PO DAILY 03/04/19 03/04/19 History [Levothyroxine 25mcg (0.025mg) Tab] Triamterene/Hydrochlorothiazid 1 tab PO DAILY 03/04/19 03/04/19 History [Maxzide-25 tablet] Allergies Allergy/AdvReac Type Severity Reaction Status Date / Time No Known Allergies Allergy Verified 10/28/18 17:46 Exam Vital signs and Labs for Last 24 Hours: Temp Pulse Resp BP Pulse Ox 98.2 F 89 16 118/52 L 100 03/04/19 08:00 03/04/19 08:00 03/04/19 08:00 03/04/19 08:00 03/04/19 08:00 Laboratory Results - last 24 hr 03/04/19 02:10: ESR > 140 H 03/04/19 02:10: Lactate 2.1 H 03/04/19 02:10: WBC 10.9 H, RBC 3.35 L, Hgb 8.1 L, Hct 28.8 L, MCV 86.1, MCH 24.3 L, MCHC 28.2 L, RDW 16.3, Plt Count 436 H, MPV 7.9, Neut % (Auto) 84.1 H, Lymph % (Auto) 9.6 L, [place] % (Auto) 5.5, Eos % (Auto) 0.4, Baso % (Auto) 0.3, Neut # (Auto) 9.2 H, Lymph # (Auto) 1.1, [place] # (Auto) 0.6, Eos # (Auto) 0.0, Baso # (Auto) 0.0 03/04/19 02:10: Sodium 134 L, Potassium 3.7, Chloride 99, Carbon Dioxide 25, Anion Gap 13.7, BUN 25 H, Creatinine 1.64 H, Estimated Creat Clear 28, Estimated GFR 31 L, Est GFR ( Amer) 37 L, Glucose 123 H, Calcium 8.5, Total Bilirubin 0.5, AST 38 H, ALT 17, Alkaline Phosphatase 101, C-Reactive Protein 1 9.8 H, Total Protein 8.7 H, Albumin 2.1 L, Globulin 6.6 H, Albumin/Globulin Ratio 0.3 L 03/04/19 02:10: TSH 3.20 D 03/04/19 07:35: Lactate 0.8 I & O for Last 24 hours: Intake & Output 03/02/19 03/03/19 03/04/19 03/05/19 11:59 11:59 11:59 11:59 Intake Total 546 / 546 Balance 546 / 546 Weight 284 lb 1 oz Microbiology Reports for the Last 24 Hours: Microbiology 03/04/19 03:55 Ankle,Right Gram Stain - Final - Constitutional no acute distress, morbidly obese - *Routine HEENT Exam Head: Present: normocephalic Eye: Present: EOMI ENT: Present: mucous membranes moist - *Routine Respiratory Exam Present: CTA bilaterally. Absent: wheezes - *Routine Cardiovascular Exam Present: RRR - *Routine Abdominal Exam Present: soft. Absent: tenderness - *Routine Extremities Exam Comments: BLE wrapped with Unna boot/Coban by lymphedema/wound care team; unable to assess underlying cellulitis patient is morbidly obese, body habitus and position in bed limits exam able to passively range B/L knees 0-100 degrees with moderate discomfort and crepitus B/L knees appear stable to varus/valgus stress but again, exam limited by habitus patient unable to perform unassisted straight leg raise +DF/PF/EHL BLE cannot palpate pedal pulses due to compression dressings; exposed toes warm with brisk cap refill SILT distally across toes, sensory testing in other distributions hindered by dressings negative logroll B/L hips - *Routine Neurological Exam Present: alert, oriented X3, moving all extremities, normal tone, hearing grossly intact, normal speech. Absent: sensory deficit, motor deficit, altered mental status Results - Labs Result Diagrams: 03/04/19 02:10 03/04/19 02:10 Labs: Abnormal lab results 03/04/19 03/04/19 03/04/19 Range/Units 02:10 02:10 02:10 WBC 10.9 H (4.8-10.8) K/mm3 RBC 3.35 L (4.20-5.40) M/mm3 Hgb 8.1 L (12.2-16.2) g/dL Hct 28.8 L (37.0-47.0) % MCH 24.3 L (27.0-31.2) pg MCHC 28.2 L (31.8-35.4) g/dL Plt Count 436 H (142-424) K/mm3 Neut % (Auto) 84.1 H (37.0-80.0) % Lymph % (Auto) 9.6 L (10-50) % Neut # (Auto) 9.2 H (1.8-7.8) K/mm3 ESR > 140 H (0-30) mm/hr Sodium (136-145) mmol/L BUN (7-18) mg/dL Creatinine (0.55-1.02) mg/dL Estimated GFR (>60) ml/min Est GFR ( Amer) (>60) ML/MIN Glucose (74-106) mg/dL Lactate 2.1 H (0.4-2.0) mmol/L AST (15-37) U/L C-Reactive Protein (0.0-0.9) mg/dL Total Protein (6.4-8.2) gm/dL Albumin (3.4-5.0) gm/dL Globulin (1.3-3.2) gm/dl Albumin/Globulin Ratio (1.1-1.8) 03/04/19 Range/Units 02:10 WBC (4.8-10.8) K/mm3 RBC (4.20-5.40) M/mm3 Hgb (12.2-16.2) g/dL Hct (37.0-47.0) % MCH (27.0-31.2) pg MCHC (31.8-35.4) g/dL Plt Count (142-424) K/mm3 Neut % (Auto) (37.0-80.0) % Lymph % (Auto) (10-50) % Neut # (Auto) (1.8-7.8) K/mm3 ESR (0-30) mm/hr Sodium 134 L (136-145) mmol/L BUN 25 H (7-18) mg/dL Creatinine 1.64 H (0.55-1.02) mg/dL Estimated GFR 31 L (>60) ml/min Est GFR ( Amer) 37 L (>60) ML/MIN Glucose 123 H (74-106) mg/dL Lactate (0.4-2.0) mmol/L AST 38 H (15-37) U/L C-Reactive Protein 19.8 H (0.0-0.9) mg/dL Total Protein 8.7 H (6.4-8.2) gm/dL Albumin 2.1 L (3.4-5.0) gm/dL Globulin 6.6 H (1.3-3.2) gm/dl Albumin/Globulin Ratio 0.3 L (1.1-1.8) H & H 03/04/19 Range/Units 02:10 Hgb 8.1 L (12.2-16.2) g/dL Hct 28.8 L (37.0-47.0) % All other labs normal. - Diagnostic results Knee x-ray: image reviewed (severe, tricompartmental DJD of bilateral knees) Assessment and Plan (1) Tricompartment degenerative joint disease of knee Current visit: Yes Status: Acute Category: Medical Code(s): M17.10 - Unilateral primary osteoarthritis, unspecified knee (2) Anemia Current visit: Yes Status: Acute Qualifiers: Anemia type: unspecified type Qualified Code(s): D64.9 - Anemia, unspecified Category: Medical Code(s): D64.9 - Anemia, unspecified (3) Obesity Current visit: Yes Status: Acute Qualifiers: Obesity type: due to excess calories Obesity classification: adult class 3 (BMI >= 40) Serious obesity comorbidity presence: with serious comorbidity Body mass index: BMI 50.0-59.9 Qualified Code(s): E66.01 - Morbid (severe) obesity due to excess calories; Z68.43 - Body mass index (BMI) 50.0-59.9, adult Category: Medical Code(s): E66.9 - Obesity, unspecified (4) Renal insufficiency Current visit: Yes Status: Acute Category: Medical Code(s): N28.9 - Disorder of kidney and ureter, unspecified - Assessment and plan all Dx Assessment and Plan for all problems:: 73yo F with severe DJD B/L knees -- I agree that the patient's x-rays qualify her for TKA, but her BMI places her at high risk of adverse outcome perioperatively. Furthermore, with significant lymphedema and overlying cellulitis, she would be at even higher risk. I would not recommend surgery until her BMI <40, lymphedema is better controlled, and there is no active infection. -- intra-articular corticosteroid injections could be administered for pain control, but I would not recommend this (or any injection, including hyaluronic acid) while there is an active infection. I also believe viscosupplementation would not be effective for her given the severity of her disease, and PRP wound certainly not be effective and would be costly. -- recommend continued treatment by wound care/lymphedema + continuation of appropriate IV antibiotics -- offload heels on pillows, may benefit from pressure-reduction mattress -- apply ice to B/L knees PRN -- avoid NSAIDs due to renal insufficiency; Cr was 1.64 today -- recommend trending CRP to follow resolution of infection -- ongoing physical therapy for ambulation, balance, cardiovascular conditioning and strength training may be beneficial for maintaining as much function as possible -- will continue to follow peripherally while in house, may f/u with me as an outpatient after discharge
[2019-03-05 07:08] LABS: Basophils % 0.5 % (0.1-2.0); Eosinophils # 0.2 K/mm3 (0.0-0.4); Eosinophils % 2.9 % (0.1-12.0); Hematocrit 25.2 % (37.0-47.0); Lymphocytes # 1.3 K/mm3 (0.7-4.5); Lymphocytes % 16.4 % (10-50); Mean Corpuscular HGB Conc 28.6 g/dL (31.8-35.4); Mean Corpuscular Volume 86.4 fl (81-99); Mean Platelet Volume 7.7 fl (7.4-10.4); Monocytes # 0.6 K/mm3 (0.1-1.0); Monocytes % 7.2 % (1.7-9.3); Neutrophils % 73.1 % (37.0-80.0); Platelet Count 306 K/mm3 (142-424); Red Blood Count 2.92 M/mm3 (4.20-5.40); White Blood Count 8.1 K/mm3 (4.8-10.8)
[2019-03-05 07:12] LABS: Anion Gap 8.6 mEq/L (5-15)
[2019-03-05 07:31] LABS: Hemoglobin 7.1 g/dL (12.2-16.2)
[2019-03-05 07:44] LABS: Calcium 7.6 mg/dL (8.5-10.1)
--- NOTE | 2019-03-05 08:30 | Progress Note ---
Internal Medicine - PN: Subj *Date: 03/05/19 *Time: 08:54 Interval history: 73-year-old female patient resting quietly in bed with Unna boots. Hemoglobin 7.1 we will transfuse 2 units of packed cells today Exam Vital signs and Labs for Last 24 Hours: Temp Pulse Resp BP Pulse Ox 98.8 F 74 16 120/52 L 96 03/05/19 04:04 03/05/19 04:04 03/05/19 04:04 03/05/19 04:04 03/05/19 04:04 Laboratory Results - last 24 hr 03/05/19 06:52: WBC 8.1 D, RBC 2.92 L, Hgb 7.1 L*, Hct 25.2 L, MCV 86.4, MCH 24.7 L, MCHC 28.6 L, RDW 16.0, Plt Count 306 D, MPV 7.7, Neut % (Auto) 73.1, Lymph % (Auto) 16.4, [place] % (Auto) 7.2, Eos % (Auto) 2.9, Baso % (Auto) 0.5, Neut # (Auto) 6.0, Lymph # (Auto) 1.3, [place] # (Auto) 0.6, Eos # (Auto) 0.2, Baso # (Auto) 0.0 03/05/19 06:52: Sodium 136, Potassium 3.6, Chloride 104, Carbon Dioxide 27, Anion Gap 8.6, BUN 20 H, Creatinine 1.35 H, Estimated Creat Clear 34, Estimated GFR 39 L, Est GFR ( Amer) 47 L D, Glucose 89, Calcium 7.6 L D I & O for Last 24 hours: Intake & Output 03/02/19 03/03/19 03/04/19 03/05/19 23:59 23:59 23:59 23:59 Intake Total 1898 / 2138 910 / 910 Output Total 350 / 350 Balance 1548 / 1788 910 / 910 Weight 284 lb 1 oz 286 lb 1 oz Microbiology Reports for the Last 24 Hours: Microbiology 03/04/19 03:55 Ankle,Right Gram Stain - Final 03/04/19 03:55 Ankle,Right Wound Culture - Preliminary NO GROWTH AFTER 24 HOURS - Constitutional no acute distress - *Routine HEENT Exam Head: Present: normocephalic Eye: Present: EOMI, PERRL ENT: Present: mucous membranes dry - *Routine Neck Exam Present: supple, trachea midline. Absent: tracheal deviation - *Routine Respiratory Exam Present: CTA bilaterally. Absent: accessory muscle use, rales - *Routine Cardiovascular Exam Present: RRR - *Routine Abdominal Exam Present: soft. Absent: tenderness - *Routine Extremities Exam Present: edema. Absent: calf tenderness Comments: Unna Boots in place - Routine Back/Spine/Pelvis Exam Back/Spine: Present: full ROM. Absent: CVA tenderness - *Routine Skin Exam Present: intact - *Routine Neurological Exam Present: alert, oriented X3, CN II-XII intact - Routine Psychiatric Exam Present: normal affect. Absent: auditory hallucinations, visual hallucinations Assessment and Plan (1) Lymphedema Start date: 03/04/19 Start time: 08:00 Current visit: Yes Status: Acute Category: Medical Code(s): I89.0 - Lymphedema, not elsewhere classified (2) Cellulitis, leg Start date: 03/04/19 Start time: 08:00 Current visit: Yes Status: Acute Category: Medical Code(s): L03.119 - Cellulitis of unspecified part of limb (3) Heel ulcer Start date: 03/04/19 Start time: 08:00 Current visit: Yes Status: Acute Category: Medical Code(s): L97.409 - Non- pressure chronic ulcer of unspecified heel and midfoot with unspecified severity (4) Bilateral pressure ulcer of feet Current visit: Yes Status: Acute Category: Medical Code(s): L89.899 - Pressure ulcer of other site, unspecified stage (5) Morbid obesity with BMI of 45.0-49.9, adult Start date: 03/04/19 Start time: 08:00 Current visit: Yes Status: Chronic Category: Medical Code(s): E66.01 - Morbid (severe) obesity due to excess calories; Z68.42 - Body mass index (BMI) 45.0-49.9, adult (6) Keratosis Start date: 03/04/19 Start time: 08:00 Current visit: Yes Status: Chronic Category: Medical Code(s): L57.0 - Actinic keratosis (7) Osteoarthritis of feet, bilateral Start date: 03/04/19 Start time: 08:00 Current visit: Yes Status: Chronic Category: Medical Code(s): M19.071 - Primary osteoarthritis, right ankle and foot; M19.072 - Primary osteoarthritis, left ankle and foot - Assessment and plan all Dx Assessment and Plan for all problems:: Rounded with Dr. Greenfield, all orders per Dr. Greenfield 1. Transfuse 2 units packed red blood cells 2. Bactrim DS 2 tabs twice daily x 7 days 3. Amoxicillin 500 mg 3 times daily x 7 days 4. Awaiting podiatry input Ortho has seen and recommends: -- I agree that the patient's x-rays qualify her for TKA, but her BMI places her at high risk of adverse outcome perioperatively. Furthermore, with significant lymphedema and overlying cellulitis, she would be at even higher risk. I would not recommend surgery until her BMI <40, lymphedema is better controlled, and there is no active infection. -- intra-articular corticosteroid injections could be administered for pain con trol, but I would not recommend this (or any injection, including hyaluronic acid) while there is an active infection. I also believe viscosupplementation would not be effective for her given the severity of her disease, and PRP wound certainly not be effective and would be costly. -- recommend continued treatment by wound care/lymphedema + continuation of appropriate IV antibiotics -- offload heels on pillows, may benefit from pressure-reduction mattress -- apply ice to B/L knees PRN -- avoid NSAIDs due to renal insufficiency; Cr was 1.64 today -- recommend trending CRP to follow resolution of infection -- ongoing physical therapy for ambulation, balance, cardiovascular conditioning and strength training may be beneficial for maintaining as much function as possible -- will continue to follow peripherally while in house, may f/u with me as an outpatient after discharge The patient's infection will respond to the chosen ABx?: Yes Is the patient receiving the right drug, dose, and route?: Yes Could a more targeted ABx be ordered?: No 7
--- NOTE | 2019-03-05 08:55 | Progress Note ---
Subjective Date: 03/05/19 <Radha Alba - 03/05/19 08:55> Time: 08:10 <Radha Alba - 03/05/19 08:55> Principal diagnosis: Bilateral lower extremity lymphedema, heel pressure, cellulitis <Radha Alba - 03/05/19 08:58> Interval history: 73 yr. old female admitted with b/l lower extremities Lymphededema,heel pressure,cellulitis is resting in bed this morning with no complaints of pain states she rested well last night. B/L lower extremities are wrapped in unna boots placed by wound clinic and feet offloaded on pillows. Patient states that Nicolas from the wound clinic will be up later today to change out her unna boots for the weekend. <Radha Alba - 03/05/19 09:31> PN: Obj Ex Vital signs: Temp Pulse Resp BP Pulse Ox 98.1 F 49 L 17 123/70 97 03/08/19 14:20 03/08/19 15:20 03/08/19 15:20 03/08/19 15:20 03/08/19 15:20 <Soumya Blue - 03/08/19 17:01> Temp Pulse Resp BP Pulse Ox 98.8 F 74 16 120/52 L 97 03/05/19 04:04 03/05/19 04:04 03/05/19 04:04 03/05/19 04:04 03/05/19 08:20 <Radha Alba - 03/05/19 08:55> - Constitutional no acute distress, morbidly obese, cooperative <Radha Alba - 03/05/19 09:31> - Routine HEENT Exam Head: Present: normocephalic <Radha Alba - 03/05/19 09:31> Eye: Present: EOMI <Radha Alba - 03/05/19 09:31> ENT: Present: mucous membranes dry <Radha Alba - 03/05/19 09:31> - Routine Neck Exam Present: full ROM, trachea midline. Absent: JVD <Radha Alba - 03/05/19 09:31> - Routine Chest/Breast/Axilla Exam Chest wall: Absent: tenderness <Radha Alba 03/05/19 09:31> - Routine Respiratory Exam Absent: accessory muscle use, respiratory distress <Radha Alba 02/23 09:31> - Routine Cardiovascular Exam Present: RRR. Absent: JVD <Radha Alba 03/05/19 09:31> - Routine Abdominal Exam Present: soft. Absent: tenderness <Radha Alba 03/05/19 09:31> - Routine Extremities Exam Present: edema, normal capillary refill. Absent: calf tenderness, Crystal's sign <Radha Alba 03/05/19 09:31> Comments: B/L lower extremities Unna boots in place <Radha Alba 03/05/19 09:31> - Detailed Lower Extremity Exam Lower leg: Bilateral swelling (3+ edema), Bilateral tenderness, Bilateral wound (wounds covered with unna boots), Bilateral erythema, Bilateral warmth <Radha Alba 03/05/19 09:31> Ankle: Bilateral erythema, Bilateral swelling, Bilateral full ROM <Radha Alba 03/05/19 09:31> Foot/Toes: Bilateral calcaneal tenderness (B/L heels are red, tender, stage I Pressure ulcers), Bilateral erythema <Radha Alba 03/05/19 09:31> Leg image: 1 - Right leg lymphedema covered in Unna boots & coban. Lymphedema managed by wound clinic. 2 - Left leg lymphedema covered in Unna boots & coban. Lymphedema managed by wound clinic. <Radha Alba 03/05/19 09:31> Bottom foot image: 1 - Right heel pressure ulcer, no open skin, no visible breakdown noted, no drainage. 2 - Left heel pressure ulcer, no open skin, no visible breakdown noted, no drainage. <Radha Alba - 03/05/19 09:31> - Routine Back/Spine/Pelvis Exam Back/Spine: Present: full ROM. Absent: CVA tenderness <Radha Alba - 03/05/19 09:31> - Routine Skin Exam Present: erythema, dry, lesions, wounds, cracked, gangrene <Radha Alba - 03/05/19 09:31> Comments: Upper Extremites skin is intact. B/L lower extremities are Edematous, lymphede ma, that has alot of drainage and blisters, open places on the skin, dry cracked skin, malodorous, that is now being treated by the wound clinic with unna boot therapy and Patient is receiving IV antibiotics at this time. <Radha Alba - 03/05/19 09:31> - Routine Neurological Exam Present: alert, oriented X3, CN II-XII intact. Absent: sensory deficit <Radha Alba - 03/05/19 09:31> - Routine Psychiatric Exam Present: normal affect, cooperative <Radha Alba - 03/05/19 09:31> Progress Note: A&P (1) Lymphedema Status: Acute Current Visit: Yes (2) Cellulitis, leg Status: Acute Current Visit: Yes (3) Heel ulcer Status: Acute Current Visit: Yes (4) Bilateral pressure ulcer of feet Status: Acute Current Visit: Yes (5) Morbid obesity with BMI of 45.0-49.9, adult Status: Chronic Current Visit: Yes (6) Keratosis Status: Chronic Current Visit: Yes (7) Osteoarthritis of feet, bilateral Status: Chronic Current Visit: Yes (8) Renal insufficiency Status: Acute Current Visit: Yes <Soumya Blue - 03/08/19 17:01> (1) Lymphedema Start date: 03/04/19 Start time: 08:00 Status: Acute Current Visit: Yes (2) Cellulitis, leg Start date: 03/04/19 Start time: 08:00 Status: Acute Current Visit: Yes (3) Heel ulcer Start date: 03/04/19 Start time: 08:00 Status: Acute Current Visit: Yes (4) Bilateral pressure ulcer of feet Start date: 03/04/19 Start time: 08:00 Status: Acute Current Visit: Yes (5) Morbid obesity with BMI of 45.0-49.9, adult Start date: 03/04/19 Start time: 08:00 Status: Chronic Current Visit: Yes (6) Keratosis Start date: 03/04/19 Start time: 08:00 Status: Chronic Current Visit: Yes (7) Osteoarthritis of feet, bilateral Start date: 03/04/19 Start time: 08:00 Status: Chronic Current Visit: Yes (8) Renal insufficiency <Radha Alba - 03/05/19 09:51> Assessment and Plan for All Diagnoses:: Physician Attestation I agree with the above plan of care. I have read the office note that was documented by the staff and/or DIRECTOR OF STRATEGIC PROGRAMS and agree with the documentation. <Soumya Blue - 03/08/19 17:01> Assessment and Plan for all problems:: Bilateral lower extremity lymphedema, heel pressure ulcers, cellulitis: We discussed in detail with the patient lymphedema. Patient understands that the treatment is multi-factorial. The underlying lymphedema needs to be addressed via wound care clinic, lymphedema clinic including compression therapy and the use of Unna boots. The infection needs to be controlled via antibiotics. The heel pain needs to be controlled by offloading the heels. The patient does not have a definitive pressure ulcer as of yet but the areas edematous and e rythematous. She must offload in order to prevent decubitus ulcers from forming. 30 minutes was spent educating and counseling the patient. Plan: 1. Completed/discussed with the patient- Foot x-rays 3 views taken 03/04/2019 reviewed and evaluated by myself. Report noted. Osteoarthritic changes noted throughout the foot. No definitive ulcer or signs of osteomyelitis noted 2. Continue lymphedema treatment with wound care 3. Continue unna boots therapy via wound care 5. Recommend minimal weightbearing to avoid pressure on the heels; patient will need DME (wheelchair, walker, bedside commode, shower chair) 6. Dispense postop shoe x2 today 7. Patient will need outpatient lymphedema compression therapy, antibiotics for the cellulitis and continued offloading for the heels 8. Defer to Dr. Greenfield for outpatient antiobiotics, patient may need PICC line based on wound culture 9. Follow up with wcc/lymph upon discharge Thank you for allowing us to participate in the care of this patient. Please contact us with questions or concerns. <Radha Alba - 03/05/19 09:48>
--- NOTE | 2019-03-05 14:52 | Discharge Summary ---
General - General Admission date:: 03/04/19 Discharge date: 03/05/19 HPI HPI: 73-year-old female patient sitting up in bed with Unna boots and wraps on. She reports she is feeling better and she is ready for discharge. Explained that she will be receiving 2 units of packed red blood cells and then she will be discharged home. She is agreeable to this all discharge orders given, she verbalizes understanding. 73 yr old female pt stated she was at home when her knees gave out and she fell to her knees. pt stated she was unable to get up on her own. pt denies hitting her head/LOC. per ems pt was found still on her knees with her head resting on a chair. bilateral edema and sores present on bilateral lower extremities. pt stated they have been in the condition with dry/scarred so she bought a cream that was for wart removal that "made her skin fall off" for about a month and a half. Patient states she is been having increased amount of issues with her knees hurting and was told she is not a candidate for knee replacement due to her obesity. Patient states her legs just progressively got worse. Hospital Course Hospital Course: 73 yr old female pt stated she was at home when her knees gave out and she fell to her knees. pt stated she was unable to get up on her own. pt denies hitting her head/LOC. per ems pt was found still on her knees with her head resting on a chair. bilateral edema and sores present on bilateral lower extremities. pt stated they have been in the condition with dry/scarred so she bought a cream that was for wart removal that "made her skin fall off" for about a month and a half. Patient states she is been having increased amount of issues with her knees hurting and was told she is not a candidate for knee replacement due to her obesity. Patient states her legs just progressively got worse. Ortho has seen and recommends: -- I agree that the patient's x-rays qualify her for TKA, but her BMI places her at high risk of adverse outcome perioperatively. Furthermore, with significant lymphedema and overlying cellulitis, she would be at even higher risk. I would not recommend surgery until her BMI <40, lymphedema is better controlled, and there is no active infection. -- intra-articular corticosteroid injections could be administered for pain control, but I would not recommend this (or any injection, including hyaluronic acid) while there is an active infection. I also believe viscosupplementation would not be effective for her given the severity of her disease, and PRP wound certainly not be effective and would be costly. -- recommend continued treatment by wound care/lymphedema + continuation of appropriate IV antibiotics -- offload heels on pillows, may benefit from pressure-reduction mattress -- apply ice to B/L knees PRN -- avoid NSAIDs due to renal insufficiency; Cr was 1.64 today -- recommend trending CRP to follow resolution of infection -- ongoing physical therapy for ambulation, balance, cardiovascular conditioning and strength training may be beneficial for maintaining as much function as possible -- will continue to follow peripherally while in house, may f/u with me as an outpatient after discharge Podiatry has seen and recommends: Plan: 1. Completed/discussed with the patient- Foot x-rays 3 views taken 03/04/2019 reviewed and evaluated by myself. Report noted. Osteoarthritic changes noted throughout the foot. No definitive ulcer or signs of osteomyelitis noted 2. Continue lymphedema treatment with wound care 3. Continue unna boots therapy via wound care 5. Recommend minimal weightbearing to avoid pressure on the heels; patient will need DME (wheelchair, walker, bedside commode, shower chair) 6. Dispense postop shoe x2 today 7. Patient will need outpatient lymphedema compression therapy, antibiotics for the cellulitis and continued offloading for the heels 8. Defer to Dr. Greenfield for outpatient antiobiotics, patient may need PICC line based on wound culture 9. Follow up with wcc/lymph upon discharge Thank you for allowing us to participate in the care of this patient. Please contact us with questions or concerns. 1. Will discharge home today on Levaquin 500 mg daily for 7 days 2. Bactrim DS 1 tab twice daily for 7 days 3. Follow-up in wound care/lymphedema clinic 4. Follow-up with podiatry in 2 weeks 5. Follow-up with Ortho as needed 6. Follow-up with PCP in 1 to 2 weeks Objective Vital signs: Temp Pulse Resp BP Pulse Ox 98.9 F 74 16 110/68 97 03/05/19 14:05 03/05/19 14:05 03/05/19 14:05 03/05/19 14:05 03/05/19 14:05 no acute distress - *Routine HEENT Exam Head: Present: normocephalic Eye: Present: EOMI, PERRL, normal accommodation ENT: Present: mucous membranes moist - *Routine Neck Exam Present: supple, trachea midline. Absent: tracheal deviation - *Routine Respiratory Exam Present: CTA bilaterally. Absent: accessory muscle use, rales - *Routine Cardiovascular Exam Present: RRR - *Routine Abdominal Exam Present: soft, normoactive bowel sounds. Absent: tenderness, firm - *Routine Extremities Exam Present: edema. Absent: cyanosis Comments: Unna boots in place - Routine Back/Spine/Pelvis Exam Back/Spine: Present: full ROM. Absent: CVA tenderness - *Routine Skin Exam Absent: jaundice Comments: BLE w/ wraps - *Routine Neurological Exam Present: alert, oriented X3, CN II-XII intact. Absent: pronator drift, altered mental status - Routine Psychiatric Exam Present: normal affect. Absent: auditory hallucinations, visual hallucinations Results Labs on day of discharge: Labs from last 24 hours 03/05/19 03/05/19 03/05/19 08:45 06:52 06:52 WBC 8.1 D RBC 2.92 L Hgb 7.1 L* Hct 25.2 L MCV 86.4 MCH 24.7 L MCHC 28.6 L RDW 16.0 Plt Count 306 D MPV 7.7 Neut % (Auto) 73.1 Lymph % (Auto) 16.4 [place] % (Auto) 7.2 Eos % (Auto) 2.9 Baso % (Auto) 0.5 Neut # (Auto) 6.0 Lymph # (Auto) 1.3 [place] # (Auto) 0.6 Eos # (Auto) 0.2 Baso # (Auto) 0.0 Sodium 136 Potassium 3.6 Chloride 104 Carbon Dioxide 27 Anion Gap 8.6 BUN 20 H Creatinine 1.35 H Estimated Creat Clear 34 Estimated GFR 39 L Est GFR ( Amer) 47 L D Glucose 89 Calcium 7.6 L D Blood Type O Positive Antibody Screen Negative Crossmatch (AHG) See Detail Preliminary micro results at discharge 03/04/19 03:55 Wound Culture - Preliminary Ankle,Right Gram Negative Rods - Additional Comments Rounded with Dr. Greenfield, all orders per We will discharge home today DS: Diagnosis - Discharge Diagnosis (1) Lymphedema Status: Acute (2) Cellulitis, leg Status: Acute (3) Heel ulcer Status: Acute (4) Bilateral pressure ulcer of feet Status: Acute (5) Morbid obesity with BMI of 45.0-49.9, adult Status: Chronic (6) Keratosis Status: Chronic (7) Osteoarthritis of feet, bilateral Status: Chronic Discharge Plan - Patient Discharge Instructions ACTIVITY: Continue current activity DIET: continue same diet Patient Instructions: DI for Cellulitis -- Adult, Gangrene, Cellulitis, Anemia - Follow up Plan Follow up with: Soumya Blue DPM [Staff Physician] - 2 weeks Magdalena Edmondson MD [Physician] - (as-needed) Abner Greenfield MD [Emergency Provider] - 2 weeks Disposition: Home, Self-Group Home Medications: Home Medications Medication Instructions Recorded Confirmed Type carvedilol 25 mg tablet 25 mg PO BID 90 Days #180 tab 11/03/18 03/04/19 Rx Levothyroxine Sodium 25 mcg PO DAILY 03/04/19 03/04/19 History [Levothyroxine 25mcg (0.025mg) Tab] Triamterene/Hydrochlorothiazid 1 tab PO DAILY 03/04/19 03/04/19 History [Maxzide-25 tablet] Sulfamethoxazole/Trimethoprim 1 each PO BID 7 Days #14 tab 03/05/19 Rx [Bactrim DS tablet] levoFLOXacin [Levaquin 500mg 500 mg PO DAILY #7 tab 03/05/19 Rx tab] Prescriptions/Medication Reconciliation: New Sulfamethoxazole/Trimethoprim [Bactrim DS tablet] 1 each PO BID 7 Days #14 tab levoFLOXacin [Levaquin 500mg tab] 500 mg PO DAILY #7 tab Continued carvedilol 25 mg tablet 25 mg PO BID 90 Days #180 tab Levothyroxine Sodium [Levothyroxine 25mcg (0.025mg) Tab] 25 mcg PO DAILY Triamterene/Hydrochlorothiazid [Maxzide-25 tablet] 1 tab PO DAILY - Problem Reconciliation Problems Reviewed?: Yes
[2019-03-05 18:24] LABS: Hematocrit 29.2 % (37.0-47.0)
[2019-03-05 18:27] LABS: Hemoglobin 8.6 g/dL (12.2-16.2)
--- NOTE | 2019-03-06 10:24 | Progress Note ---
Internal Medicine - PN: Subj *Date: 03/06/19 *Time: 10:21 Interval history: pt with knee pain and dec ambulation - has been having progressive diff over the last 2 weeks Exam Vital signs and Labs for Last 24 Hours: Temp Pulse Resp BP Pulse Ox 98.7 F 65 17 114/44 L 96 03/06/19 07:58 03/06/19 07:58 03/06/19 07:58 03/06/19 07:58 03/06/19 07:58 Laboratory Results - last 24 hr 03/05/19 08:45: Blood Type O Positive, Antibody Screen Negative, Crossmatch (AHG) See Detail 03/05/19 18:15: Hgb 8.6 L D, Hct 29.2 L I & O for Last 24 hours: Intake & Output 03/03/19 03/04/19 03/05/19 03/06/19 11:59 11:59 11:59 11:59 Intake Total 546 / 546 2752 / 2752 2420 / 2420 Output Total 350 / 350 Balance 546 / 546 2402 / 2402 2420 / 2420 Weight 284 lb 1 oz 286 lb 1 oz 290 lb 5 oz Microbiology Reports for the Last 24 Hours: Microbiology 03/04/19 03:55 Ankle,Right Gram Stain - Final 03/04/19 03:55 Ankle,Right Wound Culture - Preliminary Proteus mirabilis Gram Positive Cocci 03/04/19 02:10 Blood Blood Culture - Preliminary NO GROWTH AFTER 48 HOURS 03/04/19 02:10 Blood Blood Culture - Preliminary - Constitutional morbidly obese - *Routine HEENT Exam Head: Present: normocephalic Eye: Present: EOMI, PERRL ENT: Present: mucous membranes dry - *Routine Neck Exam Present: supple - *Routine Respiratory Exam Present: decreased breath sounds - *Routine Cardiovascular Exam Present: RRR, murmur - *Routine Abdominal Exam Present: soft - *Routine Extremities Exam Comments: has dressing bilat - *Routine Neurological Exam Present: alert, oriented X3, CN II-XII intact - Routine Psychiatric Exam Present: normal affect Assessment and Plan (1) Lymphedema Start date: 03/04/19 Start time: 08:00 Current visit: Yes Status: Acute Category: Medical Code(s): I89.0 - Lymphedema, not elsewhere classified (2) Cellulitis, leg Start date: 03/04/19 Start time: 08:00 Current visit: Yes Status: Acute Category: Medical Code(s): L03.119 - Cellulitis of unspecified part of limb (3) Heel ulcer Start date: 03/04/19 Start time: 08:00 Current visit: Yes Status: Acute Category: Medical Code(s): L97.409 - Non- pressure chronic ulcer of unspecified heel and midfoot with unspecified severity (4) Bilateral pressure ulcer of feet Start date: 03/04/19 Start time: 08:00 Current visit: Yes Status: Acute Category: Medical Code(s): L89.899 - Pressure ulcer of other site, unspecified stage (5) Morbid obesity with BMI of 45.0-49.9, adult Start date: 03/04/19 Start time: 08:00 Current visit: Yes Status: Chronic Category: Medical Code(s): E66.01 - Morbid (severe) obesity due to excess calories; Z68.42 - Body mass index (BMI) 45.0-49.9, adult (6) Keratosis Start date: 03/04/19 Start time: 08:00 Current visit: Yes Status: Chronic Category: Medical Code(s): L57.0 - Actinic keratosis (7) Osteoarthritis of feet, bilateral Start date: 03/04/19 Start time: 08:00 Current visit: Yes Status: Chronic Category: Medical Code(s): M19.071 - Primary osteoarthritis, right ankle and foot; M19.072 - Primary osteoarthritis, left ankle and foot (8) Renal insufficiency Current visit: Yes Status: Acute Category: Medical Code(s): N28.9 - Disorder of kidney and ureter, unspecified 7
--- NOTE | 2019-03-07 09:15 | Progress Note ---
Internal Medicine - PN: Subj *Date: 03/08/19 *Time: 13:44 Interval history: doing better this am and more mobile Exam Vital signs and Labs for Last 24 Hours: Temp Pulse Resp BP Pulse Ox 98.0 F 65 18 126/54 L 96 03/07/19 07:41 03/07/19 07:41 03/07/19 07:41 03/07/19 07:41 03/07/19 07:50 I & O for Last 24 hours: Intake & Output 03/04/19 03/05/19 03/06/19 03/07/19 11:59 11:59 11:59 11:59 Intake Total 546 / 546 2752 / 2752 2520 / 2520 2046 Output Total 350 / 350 Balance 546 / 546 2402 / 2402 2520 / 2520 2046 Weight 284 lb 1 oz 286 lb 1 oz 290 lb 5 oz 300 lb 7 oz Microbiology Reports for the Last 24 Hours: Microbiology 03/04/19 03:55 Ankle,Right Gram Stain - Final 03/04/19 03:55 Ankle,Right Wound Culture - Preliminary Proteus mirabilis Staphylococcus aureus Gram Negative Rods Gram Negative Rods#2 03/04/19 02:10 Blood Blood Culture - Preliminary - Constitutional no acute distress, morbidly obese - *Routine HEENT Exam Head: Present: normocephalic Eye: Present: EOMI, PERRL ENT: Present: mucous membranes dry - *Routine Neck Exam Absent: JVD - *Routine Respiratory Exam Present: decreased breath sounds - *Routine Cardiovascular Exam Present: RRR, murmur - *Routine Abdominal Exam Present: soft - *Routine Extremities Exam Comments: lower ext wraps - *Routine Neurological Exam Present: alert - Routine Psychiatric Exam Present: normal affect Assessment and Plan (1) Lymphedema Start date: 03/04/19 Start time: 08:00 Current visit: Yes Status: Acute Category: Medical Code(s): I89.0 - Lymphedema, not elsewhere classified (2) Cellulitis, leg Start date: 03/04/19 Start time: 08:00 Current visit: Yes Status: Acute Category: Medical Code(s): L03.119 - Cellulitis of unspecified part of limb (3) Heel ulcer Start date: 03/04/19 Start time: 08:00 Current visit: Yes Status: Acute Category: Medical Code(s): L97.409 - Non- pressure chronic ulcer of unspecified heel and midfoot with unspecified severity (4) Bilateral pressure ulcer of feet Start date: 03/04/19 Start time: 08:00 Current visit: Yes Status: Acute Category: Medical Code(s): L89.899 - Pressure ulcer of other site, unspecified stage (5) Morbid obesity with BMI of 45.0-49.9, adult Start date: 03/04/19 Start time: 08:00 Current visit: Yes Status: Chronic Category: Medical Code(s): E66.01 - Morbid (severe) obesity due to excess calories; Z68.42 - Body mass index (BMI) 45.0-49.9, adult (6) Keratosis Start date: 03/04/19 Start time: 08:00 Current visit: Yes Status: Chronic Category: Medical Code(s): L57.0 - Actinic keratosis (7) Osteoarthritis of feet, bilateral Start date: 03/04/19 Start time: 08:00 Current visit: Yes Status: Chronic Category: Medical Code(s): M19.071 - Primary osteoarthritis, right ankle and foot; M19.072 - Primary osteoarthritis, left ankle and foot (8) Renal insufficiency Current visit: Yes Status: Acute Category: Medical Code(s): N28.9 - Disorder of kidney and ureter, unspecified 7
--- NOTE | 2019-03-07 10:02 | Pharmacy Consult Notes ---
- Pharmacy Consult Date: 03/07/19 Time: 10:01 Referring provider: DR. CASTAÑEDA Reason for Consult:: GENTAMICIN DOSING Allergies and ADEs:: Allergies Allergy/AdvReac Type Severity Reaction Status Date / Time No Known Allergies Allergy Verified 10/28/18 17:46 Home Medications:: Home Medications Medication Instructions Recorded Confirmed Type carvedilol 25 mg tablet 25 mg PO BID 90 Days #180 tab 11/03/18 03/04/19 Rx Levothyroxine Sodium 25 mcg PO DAILY 03/04/19 03/04/19 History [Levothyroxine 25mcg (0.025mg) Tab] Triamterene/Hydrochlorothiazid 1 tab PO DAILY 03/04/19 03/04/19 History [Maxzide-25 tablet] Sulfamethoxazole/Trimethoprim 1 each PO BID 7 Days #14 tab 03/05/19 Rx [Bactrim DS tablet] levoFLOXacin [Levaquin 500mg 500 mg PO DAILY #7 tab 03/05/19 Rx tab] Height: 1.65 m Weight: 136.276 kg Medical History: Reports:: Heart Murmur, Hypertension, Osteoporosis Denies:: Cancer, Diabetes Mellitus Type 1, Diabetes Mellitus Type 2, MRSA Assessment and Plan (1) Lymphedema Start date: 03/04/19 Start time: 08:00 Current visit: Yes Status: Acute Category: Medical Code(s): I89.0 - Lymphedema, not elsewhere classified (2) Cellulitis, leg Start date: 03/04/19 Start time: 08:00 Current visit: Yes Status: Acute Category: Medical Code(s): L03.119 - Cellulitis of unspecified part of limb (3) Heel ulcer Start date: 03/04/19 Start time: 08:00 Current visit: Yes Status: Acute Category: Medical Code(s): L97.409 - Non- pressure chronic ulcer of unspecified heel and midfoot with unspecified severity (4) Bilateral pressure ulcer of feet Start date: 03/04/19 Start time: 08:00 Current visit: Yes Status: Acute Category: Medical Code(s): L89.899 - Pressure ulcer of other site, unspecified stage (5) Morbid obesity with BMI of 45.0-49.9, adult Start date: 03/04/19 Start time: 08:00 Current visit: Yes Status: Chronic Category: Medical Code(s): E66.01 - Morbid (severe) obesity due to excess calories; Z68.42 - Body mass index (BMI) 45.0-49.9, adult (6) Keratosis Start date: 03/04/19 Start time: 08:00 Current visit: Yes Status: Chronic Category: Medical Code(s): L57.0 - Actinic keratosis (7) Osteoarthritis of feet, bilateral Start date: 03/04/19 Start time: 08:00 Current visit: Yes Status: Chronic Category: Medical Code(s): M19.071 - Primary osteoarthritis, right ankle and foot; M19.072 - Primary osteoarthritis, left ankle and foot (8) Renal insufficiency Current visit: Yes Status: Acute Category: Medical Code(s): N28.9 - Disorder of kidney and ureter, unspecified - Assessment and plan all Dx Assessment and Plan for all problems:: BASED ON PATIENT FACTORS, RECOMMEND GENTAMICIN 440 MG IV Q36H. WILL OBTAIN LEVELS AT 4 AND 12-HOURS POST INFUSION. PHARMACY WILL FOLLOW DAILY AND ADJUST APPROPRIATE.
--- NOTE | 2019-03-08 07:50 | Progress Note ---
Internal Medicine - PN: Subj *Date: 03/08/19 *Time: 07:50 Exam Vital signs and Labs for Last 24 Hours: Temp Pulse Resp BP Pulse Ox 98.2 F 62 18 135/67 98 03/08/19 04:00 03/08/19 04:00 03/08/19 04:00 03/08/19 04:00 03/08/19 04:00 Laboratory Results - last 24 hr 03/07/19 15:25: Random Gentamicin 9.0 03/07/19 23:10: Random Gentamicin 4.1 I & O for Last 24 hours: Intake & Output 03/05/19 03/06/19 03/07/19 03/08/19 23:59 23:59 23:59 23:59 Intake Total 2890 / 2890 2817 / 2817 2029 Balance 2890 / 2890 2817 / 2817 2029 Weight 129.756 kg 131.684 kg 136.276 kg 137.042 kg Microbiology Reports for the Last 24 Hours: Microbiology 03/04/19 03:55 Ankle,Right Gram Stain - Final 03/04/19 03:55 Ankle,Right Wound Culture - Preliminary Proteus mirabilis Staphylococcus aureus Proteus mirabilis#2 Pseudomonas aeruginosa 03/04/19 02:10 Blood Blood Culture - Preliminary Assessment and Plan (1) Lymphedema Start date: 03/04/19 Start time: 08:00 Current visit: Yes Status: Acute Category: Medical Code(s): I89.0 - Lymphedema, not elsewhere classified (2) Cellulitis, leg Start date: 03/04/19 Start time: 08:00 Current visit: Yes Status: Acute Category: Medical Code(s): L03.119 - Cell ulitis of unspecified part of limb (3) Heel ulcer Start date: 03/04/19 Start time: 08:00 Current visit: Yes Status: Acute Category: Medical Code(s): L97.409 - Non- pressure chronic ulcer of unspecified heel and midfoot with unspecified severity (4) Bilateral pressure ulcer of feet Start date: 03/04/19 Start time: 08:00 Current visit: Yes Status: Acute Category: Medical Code(s): L89.899 - Pressure ulcer of other site, unspecified stage (5) Morbid obesity with BMI of 45.0-49.9, adult Start date: 03/04/19 Start time: 08:00 Current visit: Yes Status: Chronic Category: Medical Code(s): E66.01 - Morbid (severe) obesity due to excess calories; Z68.42 - Body mass index (BMI) 45.0-49.9, adult (6) Keratosis Start date: 03/04/19 Start time: 08:00 Current visit: Yes Status: Chronic Category: Medical Code(s): L57.0 - Actinic keratosis (7) Osteoarthritis of feet, bilateral Start date: 03/04/19 Start time: 08:00 Current visit: Yes Status: Chronic Category: Medical Code(s): M19.071 - Primary osteoarthritis, right ankle and foot; M19.072 - Primary osteoarthritis, left ankle and foot (8) Renal insufficiency Current visit: Yes Status: Acute Category: Medical Code(s): N28.9 - Disorder of kidney and ureter, unspecified The patient's infection will respond to the chosen ABx?: Yes Is the patient receiving the right drug, dose, and route?: Yes Could a more targeted ABx be ordered?: No (ORGANISMS SENSITIVE TO GENT AND LEVAQUIN) 7
--- NOTE | 2019-03-08 08:25 | Progress Note ---
Subjective Date: 03/08/19 <Radha Abla - 03/08/19 08:31> Time: 07:50 <Radha Alba - 03/08/19 08:31> Principal diagnosis: Bilateral lower extremity lymphedema, heel pressure, cellulitis <Radha Alba - 03/08/19 08:31> Interval history: Bilateral lower extremity lymphedema, heel pressure, cellulitis Interval history: 73 yr. old female admitted with b/l lower extremities Lymphededema,heel pressure,cellulitis sitting up on side of the bed this morning with no complaints of pain states she rested well last night. B/L lower extremities are wrapped in unna boots placed by wound clinic and feet has been kept offloaded on pillows while in the bed.Patient states no pain in her heels this morning.Patient states that Nicolas from the wound clinic dressed her legs on Friday will be up later today to change out her unna boots. Patient had received blood on Friday and feels much better. Patient is hoping that she can go home today with [employer] to do her unna boot dressings. <Radha Alba - 03/08/19 08:31> PN: Obj Ex Vital signs: Temp Pulse Resp BP Pulse Ox 98.1 F 66 16 128/74 97 03/08/19 08:00 03/08/19 08:00 03/08/19 08:00 03/08/19 08:00 03/08/19 08:00 <Soumya Blue - 03/08/19 12:56> Temp Pulse Resp BP Pulse Ox 98.2 F 62 18 135/67 98 03/08/19 04:00 03/08/19 04:00 03/08/19 04:00 03/08/19 04:00 03/08/19 04:00 <Radha Alba - 03/08/19 08:31> - Constitutional no acute distress, morbidly obese <Radha Alba - 03/08/19 08:31> - Routine HEENT Exam Head: Present: normocephalic <Radha Alba - 03/08/19 08:31> Eye: Present: EOMI <Radha Alba 03/08/19 08:31> ENT: Present: mucous membranes moist <Radha Alba 03/08/19 08:31> - Routine Neck Exam Present: supple, full ROM, trachea midline. Absent: JVD <Radha Alba 03/08/19 08:31> - Routine Chest/Breast/Axilla Exam Chest wall: Absent: tenderness <Radha Alba 03/08/19 08:31> - Routine Respiratory Exam Absent: accessory muscle use, respiratory distress <Radha Alba 03/08/19 08:31> - Routine Cardiovascular Exam Present: RRR <Radha Alba 03/08/19 08:31> - Routine Abdominal Exam Present: soft, obese. Absent: tenderness, guarding <Radha Alba 03/08/19 08:31> - Routine Extremities Exam Present: edema, pulses intact, normal capillary refill. Absent: calf tenderness <Radha Alba 03/08/19 08:31> Comments: B/L Unna boots in place, 2-3+ edema, post op shoes worn by the patient this am. <Radha Alba 03/08/19 08:31> - Detailed Lower Extremity Exam Lower leg: Bilateral swelling, Bilateral tenderness, Bilateral wound, Bilateral erythema <Radha Alba 03/08/19 08:33> Ankle: Bilateral erythema, Bilateral swelling <PatydarrelRadha Edmond 03/08/19 08:33> Leg image: 1 - Right leg lymphedema covered in Unna boots & coban. Lymphedema managed by wound clinic. 2 - Left leg lymphedema covered in Unna boots & coban. Lymphedema managed by wound clinic. <AnjaliRadha Edmond 03/08/19 08:33> Bottom foot image: 1 - Right heel pressure ulcer, no open skin, no visible breakdown noted, no drainage. 2 - Left heel pressure ulcer, no open skin, no visible breakdown noted, no drainage. <Radha Alba - 03/08/19 08:34> - Routine Back/Spine/Pelvis Exam Back/Spine: Absent: vertebral tenderness <Radha Alba - 03/08/19 08:31> - Routine Skin Exam Present: erythema, dry, lesions, cracked <Radha Alba - 03/08/19 08:31> Comments: Lymphededema noted b/l, Unna boot dressing in place. <Radha Alba - 03/08/19 08:31> - Routine Neurological Exam Present: alert, oriented X3, CN II-XII intact <Radha Alba - 03/08/19 08:31> - Routine Psychiatric Exam Present: normal affect, cooperative <Radha Alba - 03/08/19 08:31> Progress Note: A&P (1) Lymphedema Status: Acute Current Visit: Yes (2) Cellulitis, leg Status: Acute Current Visit: Yes (3) Heel ulcer Status: Acute Current Visit: Yes (4) Bilateral pressure ulcer of feet Status: Acute Current Visit: Yes (5) Morbid obesity with BMI of 45.0-49.9, adult Status: Chronic Current Visit: Yes (6) Keratosis Status: Chronic Current Visit: Yes (7) Osteoarthritis of feet, bilateral Status: Chronic Current Visit: Yes (8) Renal insufficiency Status: Acute Current Visit: Yes <Soumya Blue - 03/08/19 12:56> (1) Lymphedema Start date: 03/04/19 Start time: 08:00 Status: Acute Current Visit: Yes (2) Cellulitis, leg Start date: 03/04/19 Start time: 08:00 Status: Acute Current Visit: Yes (3) Heel ulcer Start date: 03/04/19 Start time: 08:00 Status: Acute Current Visit: Yes (4) Bilateral pressure ulcer of feet Start date: 03/04/19 Start time: 08:00 Status: Acute Current Visit: Yes (5) Morbid obesity with BMI of 45.0-49.9, adult Start date: 03/04/19 Start time: 08:00 Status: Chronic Current Visit: Yes (6) Keratosis Start date: 03/04/19 Start time: 08:00 Status: Chronic Current Visit: Yes (7) Osteoarthritis of feet, bilateral Start date: 03/04/19 Start time: 08:00 Status: Chronic Current Visit: Yes (8) Renal insufficiency Start date: 03/04/19 Start time: 08:00 Status: Acute Current Visit: Yes <Radha Alba - 03/08/19 12:45> Assessment and Plan for All Diagnoses:: Physician Attestation I have read the office note that was documented by the staff and/or COMMERCIAL LOAN COLLECTION OFFICER and agree with the documentation. Agree with above plan of care. <Soumya Blue - 03/08/19 12:56> Bilateral lower extremity lymphedema, heel pressure ulcers, cellulitis: The underlying lymphedema continue to be addressed via wound care clinic, lymphedema clinic including compression therapy and the use of Unna boots. The infection needs to be controlled via antibiotics. The heel pain needs to be controlled by offloading the heels. The patient does not have a definitive pressure ulcer as of yet but the areas edematous and erythematous. She must offload in order to prevent decubitus ulcers from forming. 30 minutes was spent educating and counseling the patient. Plan: 1. Continue lymphedema treatment with wound care 2. Continue unna boots therapy via wound care 3. Recommend minimal weightbearing to avoid pressure on the heels; patient will need DME (wheelchair, walker, bedside commode, shower chair) 4. Continue to wear the post op shoes provided. 5. Patient will need outpatient lymphedema compression therapy, antibiotics for the cellulitis and continued offloading for the heels 6. Defer to Dr. Greenfield for outpatient antiobiotics, patient may need PICC line based on wound culture 7. Follow up with wcc/lymph upon discharge 8. Wound care changed the Unna boots on Friday and will be back again today to change the dressings again. <Radha Alba - 03/08/19 12:45>
[2019-03-08 10:27] LABS: Basophils % 0.3 % (0.1-2.0); Eosinophils % 0.2 % (0.1-12.0); Hematocrit 32.4 % (37.0-47.0); Hemoglobin 9.3 g/dL (12.2-16.2); Lymphocytes # 3.3 K/mm3 (0.7-4.5); Lymphocytes % 24.3 % (10-50); Mean Corpuscular HGB Conc 28.7 g/dL (31.8-35.4); Mean Corpuscular Volume 86.2 fl (81-99); Mean Platelet Volume 7.8 fl (7.4-10.4); Monocytes # 0.7 K/mm3 (0.1-1.0); Neutrophils # 9.5 K/mm3 (1.8-7.8); Neutrophils % 70.2 % (37.0-80.0); Platelet Count 383 K/mm3 (142-424); Red Blood Count 3.76 M/mm3 (4.20-5.40); Red Cell Distribution Width 16.9 % (11.5-17.5); White Blood Count 13.6 K/mm3 (4.8-10.8)
[2019-03-08 10:39] LABS: Anion Gap 12.6 mEq/L (5-15); Calcium 8.3 mg/dL (8.5-10.1)
--- NOTE | 2019-03-08 11:38 | Pharmacy Consult Notes ---
- Pharmacy Consult Date: 03/08/19 Time: 11:28 Referring provider: DR. CASTAÑEDA Reason for Consult:: GENTAMICIN LEVELS Allergies and ADEs:: Allergies Allergy/AdvReac Type Severity Reaction Status Date / Time No Known Allergies Allergy Verified 10/28/18 17:46 Home Medications:: Home Medications Medication Instructions Recorded Confirmed Type carvedilol 25 mg tablet 25 mg PO BID 90 Days #180 tab 11/03/18 03/04/19 Rx Levothyroxine Sodium 25 mcg PO DAILY 03/04/19 03/04/19 History [Levothyroxine 25mcg (0.025mg) Tab] Triamterene/Hydrochlorothiazid 1 tab PO DAILY 03/04/19 03/04/19 History [Maxzide-25 tablet] Sulfamethoxazole/Trimethoprim 1 each PO BID 7 Days #14 tab 03/05/19 Rx [Bactrim DS tablet] levoFLOXacin [Levaquin 500mg 500 mg PO DAILY #7 tab 03/05/19 Rx tab] Height: 1.65 m Weight: 137.042 kg Laboratory Results:: Laboratory Results - last 24 hr 03/07/19 15:25: Random Gentamicin 9.0 03/07/19 23:10: Random Gentamicin 4.1 03/08/19 10:20: WBC 13.6 H, RBC 3.76 L, Hgb 9.3 L, Hct 32.4 L, MCV 86.2, MCH 24.8 L, MCHC 28.7 L, RDW 16.9, Plt Count 383 D, MPV 7.8, Neut % (Auto) 70.2, Lymph % (Auto) 24.3, Bradley % (Auto) 5.0, Eos % (Auto) 0.2, Baso % (Auto) 0.3, Neut # (Auto) 9.5 H, Lymph # (Auto) 3.3, Bradley # (Auto) 0.7, Eos # (Auto) 0.0, Baso # (Auto) 0.0 03/08/19 10:20: Sodium 138, Potassium 3.6, Chloride 105, Carbon Dioxide 24, Anion Gap 12.6, BUN 25 H, Creatinine 1.35 H, Estimated Creat Clear 33, Estimated GFR 39 L, Est GFR ( Amer) 47 L, Glucose 82, Calcium 8.3 L 03/08/19 10:20: Random Gentamicin 1.6 L Medical History: Reports:: Heart Murmur, Hypertension, Osteoporosis Denies:: Cancer, Diabetes Mellitus Type 1, Diabetes Mellitus Type 2, MRSA Assessment and Plan (1) Lymphedema Start date: 03/04/19 Start time: 08:00 Current visit: Yes Status: Acute Category: Medical Code(s): I89.0 - Lymphedema, not elsewhere classified (2) Cellulitis, leg Start date: 03/04/19 Start time: 08:00 Current visit: Yes Status: Acute Category: Medical Code(s): L03.119 - Cellulitis of unspecified part of limb (3) Heel ulcer Start date: 03/04/19 Start time: 08:00 Current visit: Yes Status: Acute Category: Medical Code(s): L97.409 - Non- pressure chronic ulcer of unspecified heel and midfoot with unspecified severity (4) Bilateral pressure ulcer of feet Start date: 03/04/19 Start time: 08:00 Current visit: Yes Status: Acute Category: Medical Code(s): L89.899 - Pressure ulcer of other site, unspecified stage (5) Morbid obesity with BMI of 45.0-49.9, adult Start date: 03/04/19 Start time: 08:00 Current visit: Yes Status: Chronic Category: Medical Code(s): E66.01 - Morbid (severe) obesity due to excess calories; Z68.42 - Body mass index (BMI) 45.0-49.9, adult (6) Keratosis Start date: 03/04/19 Start time: 08:00 Current visit: Yes Status: Chronic Category: Medical Code(s): L57.0 - Actinic keratosis (7) Osteoarthritis of feet, bilateral Start date: 03/04/19 Start time: 08:00 Current visit: Yes Status: Chronic Category: Medical Code(s): M19.071 - Primary osteoarthritis, right ankle and foot; M19.072 - Primary osteoarthritis, left ankle and foot (8) Renal insufficiency Start date: 03/04/19 Start time: 08:00 Current visit: Yes Status: Acute Category: Medical Code(s): N28.9 - Disorder of kidney and ureter, unspecified - Assessment and plan all Dx Assessment and Plan for all problems:: 4-HOUR POST-INFUSION: 9.0 MCG/ML CALCULATED PEAK: 12.08 MCG/ML 12-HOUR POST-INFUSION: 4.1 MCG/ML CALCULATED TROUGH: 0.39 MCG/ML 24-HOUR POST-INFUSION: 1.6 MCG/ML BASED ON GENTAMICIN LEVELS AND PATIENT FACTORS, RECOMMEND CONTINUING GENTAMICIN 440 MG IV Q36H. PHARMACY WILL CONTINUE TO MONITOR DAILY AND ADJUST APPROPRIATE.
--- NOTE | 2019-03-08 13:33 | Discharge Summary ---
General - General Admission date:: 03/04/19 Discharge date: 03/08/19 HPI HPI: 73-year-old female patient sitting up in bed with Unna boots and wraps on. She reports she is feeling better and she is ready for discharge. Explained that she will be receiving 2 units of packed red blood cells and then she will be discharged home. She is agreeable to this all discharge orders given, she verbalizes understanding. 73 yr old female pt stated she was at home when her knees gave out and she fell to her knees. pt stated she was unable to get up on her own. pt denies hitting her head/LOC. per ems pt was found still on her knees with her head resting on a chair. bilateral edema and sores present on bilateral lower extremities. pt stated they have been in the condition with dry/scarred so she bought a cream that was for wart removal that "made her skin fall off" for about a month and a half. Patient states she is been having increased amount of issues with her knees hurting and was told she is not a candidate for knee replacement due to her obesity. Patient states her legs just progressively got worse. Hospital Course Hospital Course: this pt was found to have sig lower ext infection in the ed -pt stated she was at home when her knees gave out and she fell to her knees. pt stated she was unable to get up on her own. pt denies hitting her head/LOC. per ems pt was found still on her knees with her head resting on a chair. bilateral edema and sores present on bilateral lower extremities. pt stated they have been in the condition since februrary from using a cream her son bought her that "made her skin progressive swelling lower ext over the last few months and has dec rom and use - pt has drainage and odor to bilat lower ext - no fever - no known diabetes pt was admitted for iv abx and wound care and consults -73 yr. old female admitted with b/l lower extremities cellulitis, edema. Patient states she does not have Diabetes or any PVD, but does state that the lower leg edema and blisters has been an issue for her now going on a year or more. She has not been treated by for this problem by any other lymphedema clinic or provider. She did say she consulted an online provider with this and they started her on keflex for 10 days and she has finished this medication and states no relief. Patient states she used Salicyclic acid on her legs about a month ago to get rid of the rough s kin and blisters, which has only burned her skin. e discussed in detail with the patient lymphedema. We explained that when the lymphatic drainage occurs there can be sores on the legs. Likely there was superficial can skin contaminant to the open sores which led to cellulitis. Also the use of the salicylic acid on the skin may have burned it causing an open sore which then got infected. I exp lained the treatment is multi-factorial. The underlying lymphedema needs to be addressed via wound care clinic, lymphedema clinic including compression therapy and the use of Unna boots. The infection needs to be controlled via antibiotics. The heel pain needs to be controlled by offloading the heels. The patient does not have a definitive pressure ulcer as of yet but the areas edematous and erythematous. She must offload in order to prevent decubitus ulcers from forming. 30 minutes was spent educating and counseling the patient. Plan: 1. Foot x-rays 3 views taken 03/04/2019 reviewed and evaluated by myself. Report noted. Osteoarthritic changes noted throughout the foot. No definitive ulcer or signs of osteomyelitis noted 2. Agree with Dr. Greenfield's consult for wound care 3. Add consult for specific lymphedema treatment 4. Application of unna boots today via wound care 5. Recommend minimal weightbearing to avoid pressure on the heels; patient will need DME (wheelchair, walker, bedside commode, shower chair) 6. Patient will need postop shoe x2 7. Patient will need outpatient lymphedema compression therapy, antibiotics for the cellulitis and continued offloading for the heels 8. Defer to Dr. Greenfield for outpatient antiobiotics, patient may need PICC line based on wound culture 9. Plan to see patient in am 10. Follow up with wcc/lymph upon discharge pt was seen by therapy and had unna wraps -she was seen by ortho -year-old female admitted through the emergency room overnight after a fall at home when her knees gave out. She lives at home with her children and ambulates at baseline with either a cane or rolling walker. She is only able to ambulate short distances and believes she would not be able to walk an entire city block without stopping to rest. Her home is one-story with 1 or 2 small steps required for entry. She has a history of osteoarthritis of bilateral knees and has been evaluated at by Dr. Fung, who discussed her need for knee replacement but that she is not a good candidate at this time due to her weight; she was seen by him in May 2017. She was given corticosteroid injections at that time, which did help her pain, but they have worn off. Her son has discussed viscosupplementation or PRP injections but they have not been performed to date. She takes diclofenac oral tabs and uses the topical cream at home. She has had no other treatment for her knees. On admission she was found to have lower extremity cellulitis and significant lymphedema. She has not been treated in the past by a lymphedema clinic or used any lymphedema/compression products. She reports increasing pain and swelling in her legs over the past few months but denies significant fevers or chills at home, no nausea/vomiting or diarrhea, no chest pain or shortness of breath. Medical history significant for HTN, osteoporosis, heart murmur, chronic anemia. She is a former smoker and quit around 25 years ago; denies any EtOH intake. BMI is 47.3. agree that the patient's x-rays qualify her for TKA, but her BMI places her at high risk of adverse outcome perioperatively. Furthermore, with significant lymphedema and overlying cellulitis, she would be at even higher risk. I would not recommend surgery until her BMI <40, lymphedema is better controlled, and there is no active infection. -- intra-articular corticosteroid injections could be administered for pain control, but I would not recommend this (or any injection, including hyaluronic acid) while there is an active infection. I also believe viscosupplementation would not be effective for her given the severity of her disease, and PRP wound certainly not be effective and would be costly. -- recommend continued treatment by wound care/lymphedema + continuation of appropriate IV antibiotics -- offload heels on pillows, may benefit from pressure-reduction mattress -- apply ice to B/L knees PRN -- avoid NSAIDs due to renal insufficiency; Cr was 1.64 today -- recommend trending CRP to follow resolution of infection -- ongoing physical therapy for ambulation, balance, cardiovascular conditioning and strength training may be beneficial for maintaining as much function as possible -- will continue to follow peripherally while in house, may f/u with me as an outpatient after discharge pt declined to go to [facility] for therapy ateral lower extremity lymphedema, heel pressure ulcers, cellulitis: The underlying lymphedema continue to be addressed via wound care clinic, lymphedema clinic including compression therapy and the use of Unna boots. The infection needs to be controlled via antibiotics. The heel pain needs to be controlled by offloading the heels. The patient does not have a definitive pressure ulcer as of yet but the areas edematous and erythematous. She must offload in order to prevent decubitus ulcers from forming. 30 minutes was spent educating and counseling the patient. Plan: 1. Continue lymphedema treatment with wound care 2. Continue unna boots therapy via wound care 3. Recommend minimal weightbearing to avoid pressure on the heels; patient will need DME (wheelchair, walker, bedside commode, shower chair) 4. Continue to wear the post op shoes provided. 5. Patient will need outpatient lymphedema compression therapy, antibiotics for the cellulitis and continued offloading for the heels 6. Defer to Dr. Greenfield for outpatient antiobiotics, patient may need PICC line based on wound culture 7. Follow up with wcc/lymph upon discharge 8. Wound care changed the Unna boots on Friday and will be back again today to change the dressings again. <Radha Alba - 03/08/19 12:45> will d/c on abx and will try to arrange home health care Objective Vital signs: Temp Pulse Resp BP Pulse Ox 98.1 F 66 16 128/74 97 03/08/19 08:00 03/08/19 08:00 03/08/19 08:00 03/08/19 08:00 03/08/19 08:00 no acute distress, morbidly obese - *Routine HEENT Exam Head: Present: normocephalic Eye: Present: EOMI, PERRL ENT: Present: mucous membranes dry - *Routine Neck Exam Absent: JVD - *Routine Respiratory Exam Absent: respiratory distress - *Routine Cardiovascular Exam Present: RRR - *Routine Extremities Exam Comments: bilat wraps - *Routine Skin Exam Comments: lower ext wraps - *Routine Neurological Exam Present: alert, oriented X3 - Routine Psychiatric Exam Present: normal affect Results Labs on day of discharge: Labs from last 24 hours 03/08/19 03/08/19 03/08/19 10:20 10:20 10:20 WBC 13.6 H RBC 3.76 L Hgb 9.3 L Hct 32.4 L MCV 86.2 MCH 24.8 L MCHC 28.7 L RDW 16.9 Plt Count 383 D MPV 7.8 Neut % (Auto) 70.2 Lymph % (Auto) 24.3 Morrow % (Auto) 5.0 Eos % (Auto) 0.2 Baso % (Auto) 0.3 Neut # (Auto) 9.5 H Lymph # (Auto) 3.3 Morrow # (Auto) 0.7 Eos # (Auto) 0.0 Baso # (Auto) 0.0 Sodium 138 Potassium 3.6 Chloride 105 Carbon Dioxide 24 Anion Gap 12.6 BUN 25 H Creatinine 1.35 H Estimated Creat Clear 33 Estimated GFR 39 L Est GFR ( Amer) 47 L Glucose 82 Calcium 8.3 L Random Gentamicin 1.6 L 03/07/19 03/07/19 23:10 15:25 WBC RBC Hgb Hct MCV MCH MCHC RDW Plt Count MPV Neut % (Auto) Lymph % (Auto) Morrow % (Auto) Eos % (Auto) Baso % (Auto) Neut # (Auto) Lymph # (Auto) Morrow # (Auto) Eos # (Auto) Baso # (Auto) Sodium Potassium Chloride Carbon Dioxide Anion Gap BUN Creatinine Estimated Creat Clear Estimated GFR Est GFR ( Amer) Glucose Calcium Random Gentamicin 4.1 9.0 Preliminary micro results at discharge 03/04/19 02:10 Blood Culture - Preliminary Blood Gram Positive Cocci 03/04/19 03:55 Wound Culture - Preliminary Ankle,Right Proteus mirabilis Staphylococcus aureus Proteus mirabilis#2 Pseudomonas aeruginosa 03/04/19 02:10 Blood Culture - Preliminary Blood NO GROWTH AFTER 48 HOURS DS: Diagnosis - Discharge Diagnosis (1) Lymphedema Status: Acute (2) Cellulitis, leg Status: Acute (3) Heel ulcer Status: Acute (4) Bilateral pressure ulcer of feet Status: Acute (5) Morbid obesity with BMI of 45.0-49.9, adult Status: Chronic (6) Keratosis Status: Chronic (7) Osteoarthritis of feet, bilateral Status: Chronic (8) Renal insufficiency Status: Acute (9) Elevated erythrocyte sedimentation rate Status: Acute (10) Hypothyroidism Status: Acute (11) Anemia Status: Acute Discharge Plan - Patient Discharge Instructions ACTIVITY: Continue current activity DIET: continue same diet Patient Instructions: DI for Cellulitis -- Adult, Gangrene, Cellulitis, Anemia, DI for Methicillin-Resistant Staph Infection (MRSA), DI for Multiple Drug- resistant Organism (MDRO) Infection - Follow up Plan Follow up with: Magdalena Edmondson MD [Physician] - (as-needed) Abner Greenfield MD [Emergency Provider] - 2 weeks Soumya Blue DPM [Staff Physician] - 2 weeks Disposition: Home, Self-Alf Medications: Home Medications Medication Instructions Recorded Confirmed Type carvedilol 25 mg tablet 25 mg PO BID 90 Days #180 tab 11/03/18 03/04/19 Rx Levothyroxine Sodium 25 mcg PO DAILY 03/04/19 03/04/19 History [Levothyroxine 25mcg (0.025mg) Tab] Triamterene/Hydrochlorothiazid 1 tab PO DAILY 03/04/19 03/04/19 History [Maxzide-25 tablet] Sulfamethoxazole/Trimethoprim 1 each PO BID 7 Days #14 tab 03/05/19 Rx [Bactrim DS tablet] levoFLOXacin [Levaquin 500mg 500 mg PO DAILY #7 tab 03/05/19 Rx tab] Prescriptions/Medication Reconciliation: New Sulfamethoxazole/Trimethoprim [Bactrim DS tablet] 1 each PO BID 7 Days #14 tab levoFLOXacin [Levaquin 500mg tab] 500 mg PO DAILY #7 tab Continued carvedilol 25 mg tablet 25 mg PO BID 90 Days #180 tab Levothyroxine Sodium [Levothyroxine 25mcg (0.025mg) Tab] 25 mcg PO DAILY Triamterene/Hydrochlorothiazid [Maxzide-25 tablet] 1 tab PO DAILY - Problem Reconciliation Problems Reviewed?: Yes
== END 2019-03-08 17:08 | disposition home or self-care (01) | DRG 603 ==
LOC: 2ND 02:04 → ER 02:04 → OBSVTOIN 04:50 → 2ND 04:51
PROVIDERS: ADMIT Emergency Medicine; ATTEND Emergency Medicine
DX: M17.0 Bilateral primary osteoarthritis of knee; Z68.43 Body mass index [BMI] 50.0-59.9, adult; R20.8 Other disturbances of skin sensation; E66.01 Morbid (severe) obesity due to excess calories; E03.9 Hypothyroidism, unspecified; L57.0 Actinic keratosis; I10 Essential (primary) hypertension; D64.9 Anemia, unspecified; T49.4X5A Adverse effect of keratolytics, keratoplastics, and other hair treatment drugs and preparations, initial encounter; M19.071 Primary osteoarthritis, right ankle and foot; L03.116 Cellulitis of left lower limb; B96.5 Pseudomonas (aeruginosa) (mallei) (pseudomallei) as the cause of diseases classified elsewhere; L89.611 Pressure ulcer of right heel, stage 1; M19.072 Primary osteoarthritis, left ankle and foot; B95.4 Other streptococcus as the cause of diseases classified elsewhere; I89.0 Lymphedema, not elsewhere classified; L03.115 Cellulitis of right lower limb; L89.621 Pressure ulcer of left heel, stage 1; B96.4 Proteus (mirabilis) (morganii) as the cause of diseases classified elsewhere; B95.62 Methicillin resistant Staphylococcus aureus infection as the cause of diseases classified elsewhere
CPT/HCPCS: 36415; 73562; 73630; 80048; 80053; 80170; 83605; 84443; 85014; 85018; 85025; 85651; 86140; 86850; 87040; 87070; 87077; 87186; 87205; 97110; 97166; 99284; J1956; J2543; J3370; P9016

== ENCOUNTER → 2019-04-19 12:58 | Outpatient (CLI) | payer MEDICARE, MEDICAID, SELFPAY | PROVIDERS: PCP Emergency Medicine; Visit Provider Orthopaedic Surgery | DX: M25.562 Pain in left knee (principal); M25.561 Pain in right knee ==

== ENCOUNTER → 2019-04-26 14:58 | Outpatient (CLI) | payer MEDICARE, MEDICAID, SELFPAY ==
--- NOTE | 2019-04-26 15:05 | XR_ITS ---
PROCEDURE: XR FOOT WT BEARING LT 3V CLINICAL INDICATION: pain, heel wound COMPARISON: XR FOOT RT MIN 3V from 03/04/2019 XR FOOT LT MIN 3V from 03/04/2019 FINDINGS: Osteoarthritic changes are present at the 1st MTP joint. There is pes planus with osteoarthritic change of the navicular cuneiform joint as well as the tarsal metatarsal junction. Subarticular cystic changes are present at the navicular cuneiform joint. There are osteoarthritic changes of the talonavicular joint there is an enthesophytes at the Achilles insertion. Prominent soft tissue swelling noted along the dorsal aspect of the foot distally IMPRESSION: Osteoarthritic change. Subarticular cystic changes are present at the navicular cuneiform joint Dictated by: Wilner Ortiz MD 04/26/2019 17:22 Electronically signed by Wilner Ortiz MD in [place] 04/26/2019 17:22
== END ==
PROVIDERS: PCP Nurse Practitioner Family; Visit Provider Podiatrist
DX: M79.672 Pain in left foot (principal)
CPT/HCPCS: 73630

== ENCOUNTER 2024-01-09 16:40 | Outpatient (CLI) | payer MEDICARE, MEDICAID, SELFPAY ==
[2024-01-09 18:17] LABS: Basophils % 0.7 % (0.1-2.0); Eosinophils # 0.1 K/mm3 (0.0-0.4); Eosinophils % 1.9 % (0.1-12.0); Hematocrit 37.9 % (37.0-47.0); Hemoglobin 11.2 g/dL (12.2-16.2); Lymphocytes % 33.5 % (10-50); Mean Corpuscular HGB Conc 29.5 g/dL (31.8-35.4); Mean Corpuscular Hemoglobin 27.9 pg (27.0-31.2); Mean Corpuscular Volume 94.6 fl (81-99); Mean Platelet Volume 9.3 fl (7.4-10.4); Monocytes # 0.3 K/mm3 (0.1-1.0); Monocytes % 5.4 % (1.7-9.3); Neutrophils # 3.5 K/mm3 (1.8-7.8); Neutrophils % 58.5 % (37.0-80.0); Platelet Count 305 K/mm3 (142-424); Red Blood Count 4.01 M/mm3 (4.20-5.40); Red Cell Distribution Width 14.1 % (11.5-17.5)
[2024-01-09 18:33] LABS: Alanine Aminotransferase 15 U/L (12-78); Albumin Level 3.7 g/dl (3.5-5.0); Alkaline Phosphatase 105 U/L (38-126); Anion Gap 10.9 mEq/L (5-15); Aspartate Amino Transferase 35 U/L (14-36); Bilirubin,Total 0.7 mg/dl (0.2-1.3); Blood Urea Nitrogen 17 mg/dl (7-17); Calcium 9.3 mg/dl (8.4-10.2); Carbon Dioxide 26 mmol/L (22.0-30.0); Chloride 110 mmol/L (98-107); Chol/HDL Ratio 3.4 (1-3.5); Cholesterol 215 mg/dl (140-200); Estimated Glomerular Filt Rate 54 ml/min (>60); GFR (African American) 65 ML/MIN (>60); Globulin 3.7 g/dL (1.3-3.2); Glucose 84 mg/dl (74-100); HDL Cholesterol 63 mg/dl (40-60); Potassium 4.9 mmoL/L (3.5-5.1); Sodium 142 mmol/L (136-145); Total Protein,Serum 7.4 g/dl (6.3-8.2); Triglycerides 89 mg/dl (30-150); Uric Acid 6.5 mg/dl (2.5-6.2); VLDL Cholesterol 18 mg/dL (0-40)
[2024-01-09 18:44] LABS: Direct LDL Cholesterol 101.55 mg/dL (100-129)
[2024-01-09 19:03] LABS: Thyroid Stimulating Hormone 3.39 uIU/mL (0.465-4.68)
== END 2024-01-09 23:59 | disposition home or self-care (01) ==
LOC: LAB.DROPOF 01-10 16:19
PROVIDERS: PCP Family Medicine; Visit Provider Family Medicine
DX: I10 Essential (primary) hypertension (principal); E03.9 Hypothyroidism, unspecified; M10.9 Gout, unspecified; D64.9 Anemia, unspecified; N28.9 Disorder of kidney and ureter, unspecified; Z87.891 Personal history of nicotine dependence
CPT/HCPCS: 80053; 80061; 84443; 84550; 85025